=== PATIENT | female | born 1945 | race Caucasian/White ===

== ENCOUNTER 2016-12-22 17:36 | Inpatient (IN) | payer MEDICARE, OTHER ==
[2016-12-22] MEDS ORDERED: Albuterol/Ipratropium 3.0-0.5 MG/3 ML Neb Soln NEB ONE (19:54)
[2016-12-22] MEDS ORDERED: methylPREDNISolone Sodium Succinate 125 MG/2 ML SDV IVPUSH ONE (20:06)
[2016-12-22 20:31] LABS: CHLORIDE,CL 100 mmol/L (101-111); SODIUM,NA 132 mmol/L (135-145)
[2016-12-22] MEDS ORDERED: Codeine/guaiFENesin 100-10 MG/5 ML Syrup 5 ML Cup PO ONE (21:10)
[2016-12-22] MEDS ORDERED: Albuterol 0.083% 2.5 MG/3 ML Neb Soln NEB ONE (21:10)
[2016-12-22] MEDS ORDERED: Albuterol 0.083% 2.5 MG/3 ML Neb Soln ONE (21:11)
[2016-12-22] MEDS ORDERED: cefTRIAXone 1 GM in Sodium Chloride 0.9% 50 ML IV SCH (22:00)
[2016-12-22] MEDS ORDERED: Azithromycin 500 MG in Sodium Chloride 0.9% 250 ML IV SCH (22:00)
[2016-12-22] MEDS ORDERED: Budesonide 0.5 MG/2 ML Neb Susp NEB PRN (22:21)
[2016-12-22] MEDS ORDERED: Polyethylene Glycol 3350 Powder 17 GM Packet PO PRN (22:25)
[2016-12-22] MEDS ORDERED: Zolpidem 5 MG Tab PO PRN (22:25)
[2016-12-22] MEDS ORDERED: Ondansetron 4 MG/2 ML SDV IVPUSH PRN (22:25)
[2016-12-22] MEDS ORDERED: Morphine 2 MG/ML Syringe IVPUSH PRN (22:25)
[2016-12-22] MEDS ORDERED: Sodium Chloride 0.9% 1,000 ML IV SCH (22:30)
--- NOTE | 2016-12-22 22:38 | PCM.HP ---
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 Patient stated that she has chronic sinusitis which was acting up for the last one week was a green nasal drainage, postnasal drip, scratchy throat and yesterday her chronic cough got out of control and she starts having shortness of breath with exertion. She reported feeling warm and cold since yesterday and this morning her temperature was 100 Fahrenheit. She went to clinic and was prescribed antibiotic and steroid the patient was getting worse so she came to the emergency room. Abdomen resume her chest x-ray did not show consolidation or acute infiltrates. WBC, lactic acid, BNP are normal. On exam she was having persistent uncontrolled cough but did not seem to be in severe respiratory distress. in the emergency room she received Duoneb and albuterol nebulizers, Methylprednisone 125 mg IV and was admitted to the hospital. - Related Data Allergies/Adverse Reactions: Allergies Allergy/AdvReac Type Severity Reaction Status Date / Time levofloxacin [From Levaquin] Allergy Hypertensio Verified 12/22/16 19:13 n phenytoin sodium Allergy Rash Verified 12/22/16 19:13 [From Dilantin] phenytoin sodium extended Allergy Rash Verified 12/22/16 19:13 [From Dilantin] Home Medications: Home Meds Albuterol/Ipratropium [DuoNeb 3.0-0.5 MG/3 ML] 3 ml NEB Q6HRRT PRN 02/01/15 [ History] Alendronate [Fosamax] 70 mg PO Q7D@0600 02/01/15 [History] Esomeprazole [NexIUM] 40 mg PO DAILY 02/01/15 [History] amLODIPine [Norvasc] 10 mg PO BEDTIME 02/01/15 [History] Ascorbic Acid [Vitamin C] 500 mg PO DAILY 12/05/15 [History] Cholecalciferol (Vitamin D3) [Vitamin D3] 1,000 units PO DAILY 12/05/15 [History ] Cyanocobalamin (Vitamin B-12) [Vitamin B-12] 1,000 mcg PO DAILY 12/05/15 [ History] Tamoxifen [Nolvadex] 20 mg PO DAILY 12/05/15 [History] Albuterol [Proventil HFA] 2 puff INH Q4HR PRN 04/26/16 [History] Budesonide [Pulmicort] 2 ml NEB BID PRN 04/26/16 [History] guaiFENesin [Mucinex] 600 mg PO BID 04/26/16 [History] Amoxicillin/Potassium Clav [Augmentin 875-125 Tablet] 1 each PO BID 12/22/16 [ History] methylPREDNISolone [Methylprednisolone] 4 mg PO ASDIRECTED 12/22/16 [History] Past Medical History HEENT History: Reports: Cataract, Impaired vision, Sinusitis Cardiovascular History: Reports: Hypertension Respiratory History: Reports: Asthma Gastrointestinal History: Reports: Hiatal hernia Genitourinary History: Reports: Retention, urinary, Urinary incontinence, UTI, recurrent Other Genitourinary History: stress incontinence at times, urinaty retention, set up to see urologist HEALTH CARE ADMINISTRATOR History: Reports: None Musculoskeletal History: Reports: Neck pain, chronic, Osteoporosis, Other (see below) Other Musculoskeletal History: scoliosis Neurological History: Reports: MS, Neuropathy, peripheral Psychiatric History: Reports: None Endocrine/Metabolic History: Reports: None Hematologic History: Reports: None Immunologic History: Reports: None Oncologic (Cancer) History: Reports: Breast Dermatologic History: Reports: None - Infectious Disease History Infectious Disease History: Reports: Measles, Mumps - Past Surgical History Head Surgeries/Procedures: Reports: None HEENT Surgical History: Reports: Cataract surgery, Tonsillectomy Other HEENT Surgeries/Procedures: cleft palate at , sinus surgery, cyst removed from neck Cardiovascular Surgical History: Reports: None Respiratory Surgical History: Reports: None Other Respiratory Surgeries/Procedures: senstive to smoke and perfumes GI Surgical History: Reports: Appendectomy Female Surgical History: Reports: Breast biopsy, Cystectomy, Hysterectomy Other Musculoskeletal Surgeries/Procedures:: breast cyst removed Oncologic Surgical History: Reports: Biopsy of breast, Lumpectomy Social & Family History - Family History Family Medical History: Noncontributory Cardiac: Reports: [place] Other Cardiac Family History: mother father, and 2 sisters have pasted away from [employer] Respiratory: Reports: Asthma Psychiatric: Reports: Anxiety Other Psychiatric Family History: mother - Tobacco Use Smoking Status *Q: Never Smoker Second Hand Smoke Exposure: No - Caffeine Use Caffeine Use: Reports: Coffee - Recreational Drug Use Recreational Drug Use: No H&P Review of Systems - Review of Systems: Review Of Systems: See Below General: Denies: Night Sweats, Diaphoresis, Weight Loss HEENT: Reports: Rhinitis, Post Nasal Drip, Sinus Congestion, Sore Throat. Denies: Dysphasia, Ear Pain, Eye Pain, Headaches, Visual Changes Pulmonary: Reports: Shortness of Breath, Wheezing, Cough, Sputum (clear) Cardiovascular: Reports: No Symptoms Gastrointestinal: Reports: No Symptoms Genitourinary: Reports: No Symptoms Musculoskeletal: Reports: No Symptoms Skin: Reports: No Symptoms Psychiatric: Reports: No Symptoms Neurological: Reports: No Symptoms Hematologic/Lymphatic: Reports: No Symptoms Immunologic: Reports: No Symptoms Exam - Exam Exam: See Below - Vital Signs Vital Signs: Last Vital Signs Temp 36.8 C 12/22/16 19:08 Pulse 93 12/22/16 19:08 Resp 20 12/22/16 19:08 BP 137/81 12/22/16 19:08 Pulse Ox 100 12/22/16 19:08 Weight: 64.41 kg - Exam General: Alert, Oriented, Cooperative, Moderate Distress (from persistent coughing). No: Severe Distress, Sedated, Lethargic, Obtunded HEENT: Conjunctiva Clear, EACs Clear, EOMI, Hearing Intact, Mucosa Moist & [place] , Pupils Equal, Pupils Reactive, TMs Clear, Other (congested nasal mucosa and erythematous throat) Neck: Supple, Trachea Midline Lungs: Decreased Breath Sounds, Rhonchi, Wheezing. No: Crackles, Rales Cardiovascular: Regular Rate, Regular Rhythm Abdomen: Normal Bowel Sounds, Soft, Pelvis Stable (Female) Exam: Deferred Rectal (Female) Exam: Deferred Back Exam: Normal Inspection, Full Range of Motion Skin: Warm, Dry, Intact Neurological: Cranial Nerves Intact, Reflexes Equal Bilateral Neuro Extensive - Mental Status: Alert, Oriented x3, Normal Mood/Affect, Normal Cognition, Memory Intact Neuro Extensive - Motor, Sensory, Reflexes: CN II-XII Intact, Normal Reflexes. No: Abnormal Motor Psychiatric: Alert, Normal Affect, Normal Mood - Patient Data Result Diagrams: 12/22/16 20:05 12/22/16 20:05 *Q Meaningful Use (ADM) - VTE *Q VTE Criteria *Q: - Stroke *Q Stroke Criteria *Q: - AMI *Q AMI Criteria *Q: - Problem List (1) Persistent cough SNOMED Code(s): 887561433 ICD Code: R05 - COUGH Status: Acute Current Visit: Yes (2) Chronic sinusitis SNOMED Code(s): 04741517 ICD Code: J32.9 - CHRONIC SINUSITIS, UNSPECIFIED Status: Chronic Current Visit: Yes (3) Asthma exacerbation SNOMED Code(s): 762153737 ICD Code: J45.901 - UNSPECIFIED ASTHMA WITH (ACUTE) EXACERBATION Status: Acute Priority: High Current Visit: Yes (4) Bronchiectasis SNOMED Code(s): 54357032 ICD Code: J47.9 - BRONCHIECTASIS, UNCOMPLICATED Status: Chronic Current Visit: Yes (5) Essential hypertension SNOMED Code(s): 00938821 ICD Code: I10 - ESSENTIAL (PRIMARY) HYPERTENSION Status: Chronic Current Visit: Yes (6) Multiple sclerosis SNOMED Code(s): 72651183 ICD Code: G35 - MULTIPLE SCLEROSIS Status: Chronic Current Visit: Yes (7) GERD (gastroesophageal reflux disease) SNOMED Code(s): 040452266 ICD Code: K21.9 - GASTRO-ESOPHAGEAL REFLUX DISEASE WITHOUT ESOPHAGITIS Status: Chronic Current Visit: Yes (8) Gastroesophageal reflux disease SNOMED Code(s): 017345990 ICD Code: K21.9 - GASTRO-ESOPHAGEAL REFLUX DISEASE WITHOUT ESOPHAGITIS Status: Chronic Current Visit: No Problem List Initiated/Reviewed/Updated: Yes Orders Last 24hrs: Active Orders 24 hr Category Date Time Status Patient Status [ADT] Routine ADT 12/22/16 22:25 Ordered Flutter Valve Therapy [RT Chest Physiotherapy] [RC] Care 12/22/16 22:25 Ordered ASDIRECTED Height and Weight [RC] DAILY Care 12/22/16 22:25 Ordered Intake and Output [RC] QSHIFT Care 12/22/16 22:26 Ordered Oxygen Therapy [RC] PRN Care 12/22/16 22:25 Ordered Pulse Oximetry [RC] CONTINUOUS Care 12/22/16 22:26 Ordered RT Aerosol Therapy [RC] ASDIRECTED Care 12/22/16 22:28 Ordered RT Incentive Spirometry [RC] ASDIRECTED Care 12/22/16 22:25 Ordered Up ad Lina [RC] ASDIRECTED Care 12/22/16 22:25 Ordered VTE/DVT Education [RC] PER UNIT ROUTINE Care 12/22/16 22:25 Ordered Vital Signs [RC] Q4H Care 12/22/16 22:25 Ordered Regular Diet [DIET] Diet 12/22/16 Breakfast Ordered BASIC METABOLIC PANEL,BMP [CHEM] AM Lab 12/23/16 05:11 Ordered CBC WITH AUTO DIFF [HEME] AM Lab 12/23/16 05:11 Ordered CULTURE SPUTUM + SMEAR [RM] Stat Lab 12/22/16 22:25 Uncollected MAGNESIUM [CHEM] AM Lab 12/23/16 05:11 Ordered Acetaminophen [Tylenol] Med 12/22/16 22:25 Ordered 650 mg PO Q4H PRN Albuterol [Proventil Neb Soln] Med 12/22/16 22:25 Ordered 2.5 mg NEB Q2H PRN Albuterol/Ipratropium [DuoNeb 3.0-0.5 MG/3 ML] Med 12/22/16 23:00 Ordered 3 ml NEB Q4HRRT Alendronate [Fosamax] Med 12/29/16 06:00 Ordered 70 mg PO Q7D@0600 Ascorbic Acid [Vitamin C] Med 12/23/16 09:00 Ordered 500 mg PO DAILY Azithromycin [Zithromax] 500 mg Med 12/22/16 22:30 Ordered Sodium Chloride 0.9% [Normal Saline] 250 ml IV Q24H Budesonide [Pulmicort] Med 12/22/16 22:21 Ordered 2 ml NEB BID PRN Cholecalciferol (Vitamin D3) [Vitamin D3] Med 12/23/16 09:00 Ordered 1,000 units PO DAILY Codeine/guaiFENesin [Robitussin AC] Med 12/22/16 22:24 Ordered 10 ml PO Q4H PRN Cyanocobalamin (Vitamin B-12) [Vitamin B-12] Med 12/23/16 09:00 Ordered 1,000 mcg PO DAILY Enoxaparin [Lovenox] Med 12/23/16 09:00 Ordered 40 mg SUBCUT DAILY Esomeprazole [NexIUM] Med 12/23/16 09:00 Ordered 40 mg PO DAILY Morphine Med 12/22/16 22:25 Ordered 2 mg IVPUSH Q2H PRN Ondansetron [Zofran] Med 12/22/16 22:25 Ordered 4 mg IVPUSH Q6H PRN Polyethylene Glycol 3350 [MiraLAX] Med 12/22/16 22:25 Ordered 17 gm PO DAILY PRN Sodium Chloride 0.9% @ 125 MLS/HR (1000ml) Med 12/22/16 22:30 Ordered Sodium Chloride 0.9% [Normal Saline] 1,000 ml IV ASDIRECTED Tamoxifen [Nolvadex] Med 12/23/16 09:00 Ordered 20 mg PO DAILY Zolpidem [Ambien] Med 12/22/16 22:25 Ordered 5 mg PO BEDTIME PRN amLODIPine [Norvasc] Med 12/23/16 21:00 Ordered 10 mg PO BEDTIME cefTRIAXone [Rocephin] 1 gm Med 12/22/16 22:30 Ordered Sodium Chloride 0.9% [Normal Saline] 50 ml IV Q24H methylPREDNISolone Sod Succ [Solu-MEDROL] Med 12/22/16 22:30 Ordered 125 mg IVPUSH Q12H Resuscitation Status Routine Resus Stat 12/22/16 22:25 Ordered Assessment/Plan Comment:: asthma exacerbation with possible bronchitis, failed outpatient treatment Duoneb every 4 hours Budesonide b.i.d. Methylprednisone 125 mg b.i.d. Rocephin and azithromycin empirically Acute on chronic sinusitis Methylprednisone 125 mg b.i.d. Rocephin and azithromycin empirically Chronic Bronchiectasis Resume home medications in addition to the above treatment Incentives spirometer and flutter GERD Continue PPI Essential hypertension Continue amlodipine Multiple sclerosis Not active Hyperlipidemia, chronic Continue statin Lovenox for DVT prophylaxis Patient wants to be full code
[2016-12-22] MEDS ORDERED: Sodium Chloride 0.65% Nasal Spray 45 ML Bottle NAS PRN (22:48)
[2016-12-22] MEDS: Albuterol/Ipratropium 3.0-0.5 MG/3 ML Neb Soln NEB SCH (23:49)
[2016-12-22] MEDS: Azithromycin 500 MG in Sodium Chloride 0.9% 250 ML IV SCH (23:51)
[2016-12-23] MEDS: Albuterol/Ipratropium 3.0-0.5 MG/3 ML Neb Soln NEB SCH ×4 (03:13→20:07)
[2016-12-23] MEDS: Codeine/guaiFENesin 100-10 MG/5 ML Syrup 5 ML Cup PO PRN (03:20)
[2016-12-23] MEDS: Albuterol 0.083% 2.5 MG/3 ML Neb Soln NEB PRN (05:11)
[2016-12-23] MEDS ORDERED: Omeprazole 20 MG Cap.CR PO SCH (06:00)
[2016-12-23 06:55] LABS: CHLORIDE,CL 104 mmol/L (101-111); SODIUM,NA 135 mmol/L (135-145)
[2016-12-23] MEDS ORDERED: Potassium Chloride 10 MEQ Tab.ER PO ONE ×2 (08:04→11:59)
[2016-12-23] MEDS ORDERED: Magnesium Sulfate/Water 2 GM in Premix Bag 1 BAG IV ONE (08:04)
--- NOTE | 2016-12-23 09:43 | PCM.PN ---
- General Info Date of Service: 12/23/16 Admission Dx/Problem (Free Text): Admission Diagnosis/Problem Admission Diagnosis/Problem Asthmatic bronchitis Subjective Update: patient states that she is feeling better. Her cough and respiratory improved. However she is still having spells of cough. She denies fever, chills, nausea, vomiting, abdomen pain, headache, chest pain, or urinary symptoms, or any other symptoms. - Patient Data Vitals - most recent: Last Vital Signs Temp 37.2 C 12/23/16 07:00 Pulse 103 H 12/23/16 07:00 Resp 20 12/23/16 07:00 BP 109/54 L 12/23/16 07:00 Pulse Ox 95 12/23/16 07:00 Weight - most recent: 65.68 kg I&O - last 24 hours: Intake & Output 12/22/16 12/23/16 12/23/16 22:59 06:59 14:59 Intake Total 1315 Output Total 200 1200 Balance -200 115 Lab Results last 24 hrs: Laboratory Results - last 24 hr 12/23/16 12/23/16 Range/Units 06:02 06:02 WBC 7.9 (5.0-10.0) 10^3/uL RBC 4.13 L (4.2-5.4) 10^6/uL Hgb 12.0 (12.0-16.0) g/dL Hct 35.6 L (37.0-47.0) % MCV 86.2 (80-100) fL MCH 29.1 (27.0-34.0) pg MCHC 33.7 (33.0-35.0) g/dL Plt Count 174 (150-450) 10^3/uL Neut % (Auto) 95.8 H (42.2-75.2) % Lymph % (Auto) 3.2 L (20.5-50.1) % [place] % (Auto) 1.0 L (2-8) % Eos % (Auto) 0.0 L (1.0-3.0) % Baso % (Auto) 0.0 (0.0-1.0) % Sodium 135 (135-145) mmol/L Potassium 3.0 L (3.6-5.0) mmol/L Chloride 104 (101-111) mmol/L Carbon Dioxide 20.0 L (21.0-31.0) mmol/L Anion Gap 14.0 BUN 8 (7-18) mg/dL Creatinine 0.8 (0.6-1.3) mg/dL Est Cr Clr Drug Dosing 47.97 mL/min Estimated GFR (MDRD) > 60 Glucose 216 H (74-105) mg/dL Calcium 8.2 L (8.4-10.2) mg/dl Magnesium 1.6 L (1.8-2.5) mg/dL Med Orders - Current: Current Medications Acetaminophen (Tylenol) 650 mg PO Q4H PRN PRN Reason: Pain (Mild 1-3)/fever Albuterol (Proventil Neb Soln) 2.5 mg NEB Q2H PRN PRN Reason: shortness of breath/wheezing Last Admin: 12/23/16 05:11 Dose: 2.5 mg Albuterol/Ipratropium (Duoneb 3.0-0.5 Mg/3 Ml) 3 ml NEB Q6HRRT [facility] Amlodipine Besylate (Norvasc) 10 mg PO BEDTIME [facility] Ascorbic Acid (Vitamin C) 500 mg PO DAILY [facility] Budesonide (Pulmicort) 0.5 mg NEB BIDRT PRN PRN Reason: Shortness of Breath Cholecalciferol (Vitamin D3) 1,000 units PO DAILY [facility] Cyanocobalamin (Vitamin B12) 1,000 mcg PO DAILY [facility] Enoxaparin Sodium (Lovenox) 40 mg SUBCUT DAILY [facility] Guaifenesin/Codeine Phosphate (Robitussin Ac) 10 ml PO Q4H PRN PRN Reason: Cough Last Admin: 12/23/16 03:20 Dose: 10 ml Ceftriaxone Sodium 1 gm/ (Sodium Chloride) 50 mls @ 100 mls/hr IV Q24H [facility] Last Admin: 12/22/16 23:10 Dose: 100 mls/hr Azithromycin 500 mg/ Sodium (Chloride) 250 mls @ 250 mls/hr IV Q24H [facility] Last Admin: 12/22/16 23:51 Dose: 250 mls/hr Magnesium Sulfate 2 gm/ Premix 50 mls @ 25 mls/hr IV ONETIME ONE Stop: 12/23/16 10:03 Methylprednisolone Sodium Succinate (Solu-Medrol) 125 mg IVPUSH Q12H [facility] Morphine Sulfate (Morphine) 2 mg IVPUSH Q2H PRN PRN Reason: Pain (severe 7-10) Non-Formulary Medication (Alendronate [Fosamax]) 70 mg PO Q7D@0600 [facility] Omeprazole (Omeprazole) 40 mg PO ACBREAKFAST [facility] Last Admin: 12/23/16 06:29 Dose: 40 mg Ondansetron HCl (Zofran) 4 mg IVPUSH Q6H PRN PRN Reason: Nausea/Vomiting Polyethylene Glycol (Miralax) 17 gm PO DAILY PRN PRN Reason: Constipation Potassium Chloride (Klor-Con 10) 20 meq PO ONETIME ONE Stop: 12/23/16 12:00 Sodium Chloride ([place] Nasal Delaplane) 0 ml AMMY Q2H PRN PRN Reason: Congestion Tamoxifen Citrate (Nolvadex) 20 mg PO DAILY [facility] Zolpidem Tartrate (Ambien) 5 mg PO BEDTIME PRN PRN Reason: Sleep Discontinued Medications Albuterol (Proventil Neb Soln) 2.5 mg NEB ONETIME ONE Stop: 12/22/16 21:11 Last Admin: 12/22/16 21:12 Dose: 2.5 mg Albuterol (Proventil Neb Soln) Confirm Administered Dose 2.5 mg .ROUTE .STK-MED ONE Stop: 12/22/16 21:12 Last Admin: 12/22/16 22:13 Dose: Not Given Albuterol/Ipratropium (Duoneb 3.0-0.5 Mg/3 Ml) 3 ml NEB ONETIME ONE Stop: 12/22/16 19:55 Last Admin: 12/22/16 20:00 Dose: 3 ml Albuterol/Ipratropium (Duoneb 3.0-0.5 Mg/3 Ml) 3 ml NEB Q4HRRT [facility] Last Admin: 12/23/16 07:28 Dose: 3 ml Guaifenesin/Codeine Phosphate (Robitussin Ac) 5 ml PO ONETIME ONE Stop: 12/22/16 21:11 Last Admin: 12/22/16 21:13 Dose: 5 ml Azithromycin 500 mg/ Sodium (Chloride) 250 mls @ 250 mls/hr IV Q24H [facility] Last Admin: 12/23/16 00:38 Dose: Not Given Sodium Chloride (Normal Saline) 1,000 mls @ 125 mls/hr IV ASDIRECTED [facility] Last Admin: 12/22/16 23:10 Dose: 125 mls/hr Methylprednisolone Sodium Succinate (Solu-Medrol) 125 mg IVPUSH ONETIME ONE Stop: 12/22/16 20:07 Last Admin: 12/22/16 20:44 Dose: 125 mg Potassium Chloride (Klor-Con 10) 40 meq PO ONETIME ONE Stop: 12/23/16 08:05 - Exam General: alert, oriented, cooperative, no acute distress, other (she still having the cough). No: moderate distress, severe distress, sedated, lethargic, obtunded HEENT: Pupils equal, Pupils reactive, EOMI, Mucous membr. moist/pink Neck: supple, trachea midline, no JVD Lungs: Decreased breath sounds, Rhonchi, Wheezing. No: Crackles, Rales, Rub, Stridor Cardiovascular: Regular Rate, Regular Rhythm Abdomen: bowel sounds present, soft, no tenderness, no distension (Female) Exam: Deferred Back Exam: Normal Inspection, Full Range of Motion Extremities: no edema, normal pulses, no tenderness/swelling, no cyanosis Skin: warm, dry, intact Neurological: no new focal deficit Psy/Mental Status: alert, normal affect, normal mood - Problem List & Annotations (1) Persistent cough SNOMED Code(s): 875799383 Code(s): R05 - COUGH Status: Acute Current Visit: Yes (2) Chronic sinusitis SNOMED Code(s): 33638209 Code(s): J32.9 - CHRONIC SINUSITIS, UNSPECIFIED Status: Chronic Current Visit: Yes (3) Asthma exacerbation SNOMED Code(s): 403565484 Code(s): J45.901 - UNSPECIFIED ASTHMA WITH (ACUTE) EXACERBATION Status: Acute Priority: High Current Visit: Yes (4) Bronchiectasis SNOMED Code(s): 05967288 Code(s): J47.9 - BRONCHIECTASIS, UNCOMPLICATED Status: Chronic Current Visit: Yes (5) Essential hypertension SNOMED Code(s): 94490483 Code(s): I10 - ESSENTIAL (PRIMARY) HYPERTENSION Status: Chronic Current Visit: Yes (6) Multiple sclerosis SNOMED Code(s): 95401407 Code(s): G35 - MULTIPLE SCLEROSIS Status: Chronic Current Visit: Yes (7) GERD (gastroesophageal reflux disease) SNOMED Code(s): 947745421 Code(s): K21.9 - GASTRO-ESOPHAGEAL REFLUX DISEASE WITHOUT ESOPHAGITIS Status: Chronic Current Visit: Yes (8) Gastroesophageal reflux disease SNOMED Code(s): 563658651 Code(s): K21.9 - GASTRO-ESOPHAGEAL REFLUX DISEASE WITHOUT ESOPHAGITIS Status: Chronic Current Visit: No - Problem List Review Problem List Initiated/Reviewed/Updated: Yes - My Orders Last 24 Hours: My Active Orders 12/22/16 22:48 Sodium Chloride 0.65% [[place] Nasal Delaplane] See Dose Instructions AMMY Q2H PRN 12/22/16 23:00 Azithromycin [Zithromax] 500 mg Sodium Chloride 0.9% [Normal Saline] 250 ml IV Q24H 12/23/16 08:04 Magnesium Sulfate/Water [Magnesium Sulfate 2 GM in Water 50 ML] 2 gm Premix Bag 1 bag IV ONETIME 12/23/16 11:59 Potassium Chloride [Klor-Con 10] 20 meq PO ONETIME ONE 12/23/16 13:00 Albuterol/Ipratropium [DuoNeb 3.0-0.5 MG/3 ML] 3 ml NEB Q6HRRT 12/24/16 05:11 BASIC METABOLIC PANEL,BMP [CHEM] AM CBC WITH AUTO DIFF [HEME] AM - Plan Plan:: asthma exacerbation with possible bronchitis, failed outpatient treatment Duoneb every 6 hours Budesonide b.i.d. Methylprednisone 125 mg b.i.d. Rocephin and azithromycin empirically Persistent cough Robitussin/codeine, Tessalon, Cepacol p.r.n. Acute on chronic sinusitis Methylprednisone 125 mg b.i.d. Rocephin and azithromycin empirically Chronic Bronchiectasis Resume home medications in addition to the above treatment Incentives spirometer and flutter GERD Continue PPI Essential hypertension Continue amlodipine Multiple sclerosis Not active Hyperlipidemia, chronic Continue statin Lovenox for DVT prophylaxis Patient wants to be full code
[2016-12-23] MEDS: Tamoxifen 10 MG Tab PO SCH (10:05)
[2016-12-23] MEDS: Cholecalciferol (Vitamin D3) 400 Unit Tab PO SCH (10:06)
[2016-12-23] MEDS: Ascorbic Acid 500 MG Tab PO SCH (10:06)
[2016-12-23] MEDS: Enoxaparin 40 MG/0.4 ML Syringe SUBCUT SCH (10:10)
[2016-12-23] MEDS: methylPREDNISolone Sodium Succinate 125 MG/2 ML SDV IVPUSH SCH ×4 (10:13→23:08)
[2016-12-23] MEDS: Cyanocobalamin (Vitamin B12) 100 MCG Tab PO SCH (10:13)
[2016-12-23] MEDS: Benzonatate 100 MG Cap PO PRN ×2 (13:06→20:05)
[2016-12-23] MEDS: Acetaminophen 325 MG Tab PO PRN (14:43)
[2016-12-23] MEDS: Benzocaine/Cetylpyridinium/Menthol Lozenge MUCMEM PRN (20:05)
[2016-12-23] MEDS: amLODIPine 5 MG Tab PO SCH (21:40)
[2016-12-23] MEDS ORDERED: cefTRIAXone 1 GM in Sodium Chloride 0.9% 50 ML IV SCH (22:00)
[2016-12-23] MEDS: Azithromycin 500 MG in Sodium Chloride 0.9% 250 ML IV SCH (22:55)
[2016-12-24] MEDS: Acetaminophen 325 MG Tab PO PRN ×2 (01:08→08:50)
[2016-12-24] MEDS: Benzocaine/Cetylpyridinium/Menthol Lozenge MUCMEM PRN (01:10)
[2016-12-24] MEDS: Albuterol/Ipratropium 3.0-0.5 MG/3 ML Neb Soln NEB SCH ×4 (01:11→17:04)
[2016-12-24] MEDS: ALENDRONATE 70 MG PO SCH (06:12)
[2016-12-24] MEDS: methylPREDNISolone Sodium Succinate 125 MG/2 ML SDV IVPUSH SCH (06:51)
[2016-12-24 07:15] LABS: CHLORIDE,CL 104 mmol/L (101-111); SODIUM,NA 134 mmol/L (135-145)
[2016-12-24] MEDS: NEXIUM 40 MG PO SCH (09:50)
[2016-12-24] MEDS: Enoxaparin 40 MG/0.4 ML Syringe SUBCUT SCH (09:51)
[2016-12-24] MEDS: Tamoxifen 10 MG Tab PO SCH (09:52)
[2016-12-24] MEDS: Cyanocobalamin (Vitamin B12) 100 MCG Tab PO SCH (09:52)
[2016-12-24] MEDS: Ascorbic Acid 500 MG Tab PO SCH (09:52)
[2016-12-24] MEDS: Cholecalciferol (Vitamin D3) 400 Unit Tab PO SCH (09:53)
[2016-12-24] MEDS ORDERED: Piperacillin/Tazobactam 3.375 GM in Sodium Chloride 0.9% 100 ML IV SCH ×2 (11:00→20:00)
[2016-12-24] MEDS ORDERED: Furosemide 40 MG Tab PO ONE (11:01)
--- NOTE | 2016-12-24 11:37 | PCM.PN ---
- General Info Date of Service: 12/24/16 Admission Dx/Problem (Free Text): Admission Diagnosis/Problem Admission Diagnosis/Problem Asthmatic bronchitis Subjective Update: patient states that she is not feeling good today. She feels ill. Her main complaint is sinus pressure and pain with thick green nasal drainage. also she is complaining of feeling hot. Her temperature was mildly elevated yesterday and this morning. however her cough and shortness of breath continued to improve. However she is still having spells of cough. She denies nausea, vomiting, abdomen pain, headache, chest pain, or urinary symptoms, or any other symptoms. - Patient Data Vitals - most recent: Last Vital Signs Temp 37.6 C 12/24/16 07:43 Pulse 94 12/24/16 07:43 Resp 20 12/24/16 07:43 BP 127/58 L 12/24/16 07:43 Pulse Ox 99 12/24/16 07:43 Weight - most recent: 66.315 kg I&O - last 24 hours: Intake & Output 12/23/16 12/24/16 12/24/16 22:59 06:59 14:59 Intake Total 46 800 Output Total 3800 1000 Balance -3754 -200 Lab Results last 24 hrs: Laboratory Results - last 24 hr 12/24/16 12/24/16 Range/Units 06:40 06:40 WBC 20.5 H (5.0-10.0) 10^3/uL RBC 3.98 L (4.2-5.4) 10^6/uL Hgb 11.9 L (12.0-16.0) g/dL Hct 34.9 L (37.0-47.0) % MCV 87.7 (80-100) fL MCH 29.9 (27.0-34.0) pg MCHC 34.1 (33.0-35.0) g/dL Plt Count 211 (150-450) 10^3/uL Neut % (Auto) 95.6 H (42.2-75.2) % Lymph % (Auto) 2.1 L (20.5-50.1) % [place] % (Auto) 2.3 (2-8) % Eos % (Auto) 0.0 L (1.0-3.0) % Baso % (Auto) 0.0 (0.0-1.0) % Sodium 134 L (135-145) mmol/L Potassium 4.4 (3.6-5.0) mmol/L Chloride 104 (101-111) mmol/L Carbon Dioxide 23.0 (21.0-31.0) mmol/L Anion Gap 11.4 BUN 10 (7-18) mg/dL Creatinine 0.7 (0.6-1.3) mg/dL Est Cr Clr Drug Dosing 54.82 mL/min Estimated GFR (MDRD) > 60 Glucose 145 H (74-105) mg/dL Calcium 8.3 L (8.4-10.2) mg/dl Med Orders - Current: Current Medications Acetaminophen (Tylenol) 650 mg PO Q4H PRN PRN Reason: Pain (Mild 1-3)/fever Last Admin: 12/24/16 08:50 Dose: 650 mg Albuterol (Proventil Neb Soln) 2.5 mg NEB Q2H PRN PRN Reason: shortness of breath/wheezing Last Admin: 12/23/16 05:11 Dose: 2.5 mg Albuterol/Ipratropium (Duoneb 3.0-0.5 Mg/3 Ml) 3 ml NEB Q6HRRT [facility] Last Admin: 12/24/16 07:11 Dose: 3 ml Amlodipine Besylate (Norvasc) 10 mg PO BEDTIME [facility] Last Admin: 12/23/16 21:40 Dose: 10 mg Ascorbic Acid (Vitamin C) 500 mg PO DAILY [facility] Last Admin: 12/24/16 09:52 Dose: 500 mg Benzocaine/Menthol (Cepacol Sore Throat) 1 lozenge MUCMEM Q4H PRN PRN Reason: cough, dry throat Last Admin: 12/24/16 01:10 Dose: 1 lozenge Benzonatate (Tessalon Perles) 100 mg PO QID PRN PRN Reason: cough, dry throat Last Admin: 12/23/16 20:05 Dose: 100 mg Budesonide (Pulmicort) 0.5 mg NEB BIDRT PRN PRN Reason: Shortness of Breath Cholecalciferol (Vitamin D3) 1,000 units PO DAILY [facility] Last Admin: 12/24/16 09:53 Dose: 1,000 units Cyanocobalamin (Vitamin B12) 1,000 mcg PO DAILY [facility] Last Admin: 12/24/16 09:52 Dose: 1,000 mcg Enoxaparin Sodium (Lovenox) 40 mg SUBCUT DAILY [facility] Last Admin: 12/24/16 09:51 Dose: 40 mg Guaifenesin/Codeine Phosphate (Robitussin Ac) 10 ml PO Q4H PRN PRN Reason: Cough Last Admin: 12/23/16 03:20 Dose: 10 ml Azithromycin 500 mg/ Sodium (Chloride) 250 mls @ 250 mls/hr IV Q24H [facility] Last Admin: 12/23/16 22:55 Dose: 250 mls/hr Piperacillin Sod/Tazobactam (Sod 3.375 gm/ Sodium Chloride) 100 mls @ 200 mls/ hr IV Q8H [facility] Vancomycin HCl 1.25 gm/ Sodium (Chloride) 250 mls @ 167 mls/hr IV ONETIME ONE Stop: 12/24/16 12:28 Morphine Sulfate (Morphine) 2 mg IVPUSH Q2H PRN PRN Reason: Pain (severe 7-10) Ondansetron HCl (Zofran) 4 mg IVPUSH Q6H PRN PRN Reason: Nausea/Vomiting Alendronate [Fosamax ] 70 MgPt's Own Med 0 each PO Q7D@0600 [facility] Last Admin: 12/24/16 06:12 Dose: 1 each Patient's Own Medication 1 Each Nexium 40 Mg 1 each PO ACBREAKFAST [facility] Last Admin: 12/24/16 09:50 Dose: 1 each Polyethylene Glycol (Miralax) 17 gm PO DAILY PRN PRN Reason: Constipation Prednisone (Prednisone) 40 mg PO WITHBREAKFAST [facility] Sodium Chloride ([place] Nasal [place]) 0 ml AMMY Q2H PRN PRN Reason: Congestion Tamoxifen Citrate (Nolvadex) 20 mg PO DAILY [facility] Last Admin: 12/24/16 09:52 Dose: 20 mg Vancomycin HCl (Pharmacy To Dose - Vancomycin) 1 dose .XX ASDIRECTED [facility] Zolpidem Tartrate (Ambien) 5 mg PO BEDTIME PRN PRN Reason: Sleep Discontinued Medications Albuterol (Proventil Neb Soln) 2.5 mg NEB ONETIME ONE Stop: 12/22/16 21:11 Last Admin: 12/22/16 21:12 Dose: 2.5 mg Albuterol (Proventil Neb Soln) Confirm Administered Dose 2.5 mg .ROUTE .STK-MED ONE Stop: 12/22/16 21:12 Last Admin: 12/22/16 22:13 Dose: Not Given Albuterol/Ipratropium (Duoneb 3.0-0.5 Mg/3 Ml) 3 ml NEB ONETIME ONE Stop: 12/22/16 19:55 Last Admin: 12/22/16 20:00 Dose: 3 ml Albuterol/Ipratropium (Duoneb 3.0-0.5 Mg/3 Ml) 3 ml NEB Q4HRRT [facility] Last Admin: 12/23/16 07:28 Dose: 3 ml Furosemide (Lasix) 40 mg PO ONETIME ONE Stop: 12/24/16 11:02 Guaifenesin/Codeine Phosphate (Robitussin Ac) 5 ml PO ONETIME ONE Stop: 12/22/16 21:11 Last Admin: 12/22/16 21:13 Dose: 5 ml Azithromycin 500 mg/ Sodium (Chloride) 250 mls @ 250 mls/hr IV Q24H [facility] Last Admin: 12/23/16 00:38 Dose: Not Given Sodium Chloride (Normal Saline) 1,000 mls @ 125 mls/hr IV ASDIRECTED [facility] Last Admin: 12/22/16 23:10 Dose: 125 mls/hr Ceftriaxone Sodium 1 gm/ (Sodium Chloride) 50 mls @ 100 mls/hr IV Q24H [facility] Last Admin: 12/22/16 23:10 Dose: 100 mls/hr Magnesium Sulfate 2 gm/ Premix 50 mls @ 25 mls/hr IV ONETIME ONE Stop: 12/23/16 10:03 Last Infusion: 12/23/16 12:50 Dose: Infused Ceftriaxone Sodium 1 gm/ (Sodium Chloride) 50 mls @ 100 mls/hr IV Q24H [facility] Last Admin: 12/23/16 21:43 Dose: 100 mls/hr Methylprednisolone Sodium Succinate (Solu-Medrol) 125 mg IVPUSH ONETIME ONE Stop: 12/22/16 20:07 Last Admin: 12/22/16 20:44 Dose: 125 mg Methylprednisolone Sodium Succinate (Solu-Medrol) 125 mg IVPUSH Q12H [facility] Last Admin: 12/23/16 21:41 Dose: 125 mg Methylprednisolone Sodium Succinate (Solu-Medrol) 125 mg IVPUSH Q12H [facility] Last Admin: 12/24/16 06:51 Dose: 125 mg Omeprazole (Omeprazole) 40 mg PO ACBREAKFAST [facility] Last Admin: 12/23/16 06:29 Dose: 40 mg Potassium Chloride (Klor-Con 10) 40 meq PO ONETIME ONE Stop: 12/23/16 08:05 Last Admin: 12/23/16 10:04 Dose: 40 meq Potassium Chloride (Klor-Con 10) 20 meq PO ONETIME ONE Stop: 12/23/16 12:00 Last Admin: 12/23/16 13:06 Dose: 20 meq - Exam General: alert, oriented, cooperative, no acute distress, other (she looks ill with flushed face) HEENT: Pupils equal, Pupils reactive, EOMI, Mucous membr. moist/pink, Other ( sinus tenderness) Lungs: Decreased breath sounds (but fair air exchange), Rhonchi, Wheezing. No: Rub, Stridor Cardiovascular: Regular Rate, Regular Rhythm Abdomen: bowel sounds present, soft, no tenderness, no distension (Female) Exam: Deferred Back Exam: Normal Inspection, Full Range of Motion Extremities: normal pulses, no tenderness/swelling, no clubbing, no cyanosis, no calf tenderness, edema (trace bilateral lower extremities edema) Skin: warm, dry, intact Neurological: no new focal deficit Psy/Mental Status: alert, normal affect, normal mood - Problem List & Annotations (1) Persistent cough SNOMED Code(s): 314026482 Code(s): R05 - COUGH Status: Acute Current Visit: Yes (2) Chronic sinusitis SNOMED Code(s): 00995599 Code(s): J32.9 - CHRONIC SINUSITIS, UNSPECIFIED Status: Chronic Current Visit: Yes (3) Asthma exacerbation SNOMED Code(s): 256844095 Code(s): J45.901 - UNSPECIFIED ASTHMA WITH (ACUTE) EXACERBATION Status: Acute Priority: High Current Visit: Yes (4) Bronchiectasis SNOMED Code(s): 84121226 Code(s): J47.9 - BRONCHIECTASIS, UNCOMPLICATED Status: Chronic Current Visit: Yes (5) Essential hypertension SNOMED Code(s): 46158980 Code(s): I10 - ESSENTIAL (PRIMARY) HYPERTENSION Status: Chronic Current Visit: Yes (6) Multiple sclerosis SNOMED Code(s): 78468240 Code(s): G35 - MULTIPLE SCLEROSIS Status: Chronic Current Visit: Yes (7) GERD (gastroesophageal reflux disease) SNOMED Code(s): 960894171 Code(s): K21.9 - GASTRO-ESOPHAGEAL REFLUX DISEASE WITHOUT ESOPHAGITIS Status: Chronic Current Visit: Yes (8) Gastroesophageal reflux disease SNOMED Code(s): 760882640 Code(s): K21.9 - GASTRO-ESOPHAGEAL REFLUX DISEASE WITHOUT ESOPHAGITIS Status: Chronic Current Visit: No (9) Acute sinusitis SNOMED Code(s): 34174676 Code(s): J01.90 - ACUTE SINUSITIS, UNSPECIFIED Status: Acute Current Visit: Yes - Problem List Review Problem List Initiated/Reviewed/Updated: Yes - My Orders Last 24 Hours: My Active Orders 12/23/16 13:00 Albuterol/Ipratropium [DuoNeb 3.0-0.5 MG/3 ML] 3 ml NEB Q6HRRT 12/23/16 19:28 Communication Order [RC] 12/24/16 06:00 Patient's Own Medication [Ptom] 1 each PO ACBREAKFAST 12/24/16 10:59 CULTURE BLOOD [BC] Stat CULTURE BLOOD [BC] Stat Vancomycin 1.25 gm Sodium Chloride 0.9% [Normal Saline] 250 ml IV ONETIME Blood Culture x2 Reflex Set [OM.PC] Stat 12/24/16 11:00 Piperacillin/Tazobactam [Zosyn] 3.375 gm Sodium Chloride 0.9% [Normal Saline] 100 ml IV Q8H Vancomycin Pharmacy to Dose [Pharmacy to Dose - Vancomycin] 1 dose .XX ASDIRECTED 12/24/16 21:00 predniSONE 40 mg PO WITHBREAKFAST - Plan Plan:: possible sepsis WBC increased From 7.7 to 20,000 despite being on IV antibiotic. Part of it could be related to IV steroids -lactic acid and sputum/blood cultures ordered -Change Rocephin to Zosyn and add Karen mycin -She gained 2 kg since admission so we'll avoid giving IV fluid bolus. She has good oral intake Acute on chronic sinusitis Despite being on IV antibiotic with Rocephin and azithromycin patient developed fever In addition to increasing in her sinus symptoms -Change Rocephin to Zosyn. Patient denies penicillin allergy and she had taken place an IV penicillin in the past without problem -add vancomycin -She was advised to give sputum culture -new 2 sets of blood culture -blood cultures from admission has not grown any bacteria asthma exacerbation with possible bronchitis, failed outpatient treatment Duoneb every 6 hours Budesonide b.i.d. -change Methylprednisone 125 mg b.i.d. to oral prednisone 40 mg daily Rocephin and azithromycin empirically -repeat chest x-ray Persistent cough Robitussin/codeine, Tessalon, Cepacol p.r.n. Chronic Bronchiectasis Resume home medications in addition to the above treatment Incentives spirometer and flutter GERD Continue PPI Essential hypertension Continue amlodipine Multiple sclerosis Not active Hyperlipidemia, chronic Continue statin Lovenox for DVT prophylaxis Patient wants to be full code
[2016-12-24] MEDS ORDERED: Sodium Chloride 0.9% 500 ML IV SCH (13:15)
[2016-12-24] MEDS ORDERED: TOBRAMYCIN IV SCH (15:00)
[2016-12-24] MEDS: Sodium Chloride 0.9% 1,000 ML IV SCH (15:00)
[2016-12-24] MEDS ORDERED: SODIUM CHLORIDE 0.9% IV SCH (15:00)
[2016-12-24] MEDS ORDERED: Meropenem 1 GM in Sodium Chloride 0.9% 100 ML IV SCH (18:00)
[2016-12-24] MEDS: Benzonatate 100 MG Cap PO PRN (18:49)
[2016-12-24] MEDS: amLODIPine 5 MG Tab PO SCH (20:50)
[2016-12-24] MEDS: predniSONE 20 MG Tab PO SCH (20:51)
[2016-12-24] MEDS: Azithromycin 500 MG in Sodium Chloride 0.9% 250 ML IV SCH (22:55)
[2016-12-25] MEDS: Albuterol/Ipratropium 3.0-0.5 MG/3 ML Neb Soln NEB SCH ×5 (01:35→23:23)
[2016-12-25] MEDS: Sodium Chloride 0.9% 1,000 ML IV SCH ×2 (04:32→17:44)
[2016-12-25] MEDS: Meropenem 1 GM in Sodium Chloride 0.9% 100 ML IV SCH ×2 (05:49→17:58)
[2016-12-25] MEDS: NEXIUM 40 MG PO SCH (05:50)
--- NOTE | 2016-12-25 06:46 | EDM.PDOC ---
ED HPI GENERAL MEDICAL PROBLEM - General Chief Complaint: Respiratory Problem Stated Complaint: RESPIRATORY Time Seen by Provider: 12/22/16 19:10 Source of Information: Reports: Patient History Limitations: Reports: No Limitations - History of Present Illness INITIAL COMMENTS - FREE TEXT/NARRATIVE: ED with c/ difficulty breathing and cough, worsening past 2 days. no fevers. Hx asthma. Was seen in clinic earlier today and reports given abx and steroids. Follow up call by clinic this afternoon and she reported not doing any better and was told to come to ED. Onset: Gradual Duration: Day(s): Worsens with: Reports: Breathing - Related Data Allergies Allergy/AdvReac Type Severity Reaction Status Date / Time levofloxacin [From Levaquin] Allergy Hypertensio Verified 12/22/16 19:13 n phenytoin sodium Allergy Rash Verified 12/22/16 19:13 [From Dilantin] phenytoin sodium extended Allergy Rash Verified 12/22/16 19:13 [From Dilantin] Home Meds: Home Meds Albuterol/Ipratropium [DuoNeb 3.0-0.5 MG/3 ML] 3 ml NEB Q6HRRT PRN 02/01/15 [ History] Alendronate [Fosamax] 70 mg PO Q7D@0600 02/01/15 [History] Esomeprazole [NexIUM] 40 mg PO DAILY 02/01/15 [History] amLODIPine [Norvasc] 10 mg PO BEDTIME 02/01/15 [History] Ascorbic Acid [Vitamin C] 500 mg PO DAILY 12/05/15 [History] Cholecalciferol (Vitamin D3) [Vitamin D3] 1,000 units PO DAILY 12/05/15 [History ] Cyanocobalamin (Vitamin B-12) [Vitamin B-12] 1,000 mcg PO DAILY 12/05/15 [ History] Tamoxifen [Nolvadex] 20 mg PO DAILY 12/05/15 [History] Albuterol [Proventil HFA] 2 puff INH Q4HR PRN 04/26/16 [History] Budesonide [Pulmicort] 2 ml NEB BID PRN 04/26/16 [History] guaiFENesin [Mucinex] 600 mg PO BID 04/26/16 [History] Amoxicillin/Potassium Clav [Augmentin 875-125 Tablet] 1 each PO BID 12/22/16 [ History] methylPREDNISolone [Methylprednisolone] 4 mg PO ASDIRECTED 12/22/16 [History] Past Medical History HEENT History: Reports: Cataract, Impaired Vision, Sinusitis Cardiovascular History: Reports: Hypertension Respiratory History: Reports: Asthma Gastrointestinal History: Reports: Hiatal Hernia Genitourinary History: Reports: Retention, Urinary, Urinary Incontinence, UTI, Recurrent Other Genitourinary History: stress incontinence at times, urinaty retention, set up to see urologist P[employer]WORKER History: Reports: None Musculoskeletal History: Reports: Neck Pain, Chronic, Osteoporosis, Other (See Below) Other Musculoskeletal History: scoliosis Neurological History: Reports: MS, Neuropathy, Peripheral Psychiatric History: Reports: None Endocrine/Metabolic History: Reports: None Hematologic History: Reports: None Immunologic History: Reports: None Oncologic (Cancer) History: Reports: Breast Dermatologic History: Reports: None - Infectious Disease History Infectious Disease History: Reports: Measles, Mumps - Past Surgical History Head Surgeries/Procedures: Reports: None HEENT Surgical History: Reports: Cataract Surgery, Tonsillectomy Other HEENT Surgeries/Procedures: cleft palate at , sinus surgery, cyst removed from neck Cardiovascular Surgical History: Reports: None Respiratory Surgical History: Reports: None Other Respiratory Surgeries/Procedures: senstive to smoke and perfumes GI Surgical History: Reports: Appendectomy Female Surgical History: Reports: Breast Biopsy, Cystectomy, Hysterectomy Other Musculoskeletal Surgeries/Procedures:: breast cyst removed Oncologic Surgical History: Reports: Biopsy of Breast, Lumpectomy Social & Family History - Family History Family Medical History: Noncontributory Cardiac: Reports: IA Other Cardiac Family History: mother father, and 2 sisters have pasted away from [employer] Respiratory: Reports: Asthma Psychiatric: Reports: Anxiety Other Psychiatric Family History: mother - Tobacco Use Smoking Status *Q: Never Smoker Second Hand Smoke Exposure: No - Caffeine Use Caffeine Use: Reports: Coffee - Recreational Drug Use Recreational Drug Use: No ED ROS GENERAL - Review of Systems Review Of Systems: See Below Constitutional: Reports: Malaise, Decreased Appetite HEENT: Reports: Throat Pain (from coughing) Respiratory: Reports: Shortness of Breath, Wheezing, Cough Cardiovascular: Reports: No Symptoms GI/Abdominal: Reports: No Symptoms : Reports: Incontinence (with cough) Musculoskeletal: Reports: No Symptoms Skin: Reports: No Symptoms Neurological: Reports: No Symptoms Psychiatric: Reports: Anxiety ED EXAM, GENERAL - Physical Exam Exam: See Below Exam Limited By: No Limitations General Appearance: Alert, Moderate Distress Eye Exam: Bilateral Eye: EOMI Ears: Normal External Exam, Normal TMs Nose: Nasal Drainage (clear) Throat/Mouth: Normal Inspection Head: Atraumatic, Normocephalic Respiratory/Chest: Decreased Breath Sounds, Crackles, Wheezing, Other ( bronchspasm, frequent gagging cough) Cardiovascular: Normal Peripheral Pulses, Regular Rate, Rhythm GI/Abdominal: Normal Bowel Sounds, Soft Back Exam: Normal Inspection, Full Range of Motion Extremities: Normal Inspection, Normal Range of Motion, No Pedal Edema Neurological: Alert, Oriented, Normal Cognition Psychiatric: Anxious Skin Exam: Warm, Dry, Intact, Normal Color Course - Vital Signs Last Recorded V/S: Last Vital Signs Temp 99 F 12/24/16 23:00 Pulse 94 12/24/16 19:00 Resp 20 12/24/16 23:00 BP 128/73 12/24/16 23:00 Pulse Ox 97 12/25/16 06:04 - Orders/Labs/Meds Orders: Active Orders 24 hr Category Date Time Status Patient's Own Medication [Ptom] Med 12/24/16 06:00 Active 0 each PO Q7D@0600 Medication Orders Acetaminophen (Tylenol) 650 mg PO Q4H PRN PRN Reason: Pain (Mild 1-3)/fever Last Admin: 12/24/16 08:50 Dose: 650 mg Admin: 12/24/16 01:08 Dose: 650 mg Admin: 12/23/16 14:43 Dose: 650 mg Albuterol (Proventil Neb Soln) 2.5 mg NEB Q2H PRN PRN Reason: shortness of breath/wheezing Last Admin: 12/23/16 05:11 Dose: 2.5 mg Albuterol/Ipratropium (Duoneb 3.0-0.5 Mg/3 Ml) 3 ml NEB Q6HRRT [facility] Last Admin: 12/25/16 06:03 Dose: 3 ml Admin: 12/25/16 01:35 Dose: Not Given Admin: 12/24/16 17:04 Dose: 3 ml Admin: 12/24/16 13:38 Dose: 3 ml Admin: 12/24/16 07:11 Dose: 3 ml Admin: 12/24/16 01:11 Dose: 3 ml Admin: 12/23/16 20:07 Dose: 3 ml Admin: 12/23/16 13:43 Dose: 3 ml Amlodipine Besylate (Norvasc) 10 mg PO BEDTIME [facility] Last Admin: 12/24/16 20:50 Dose: 10 mg Admin: 12/23/16 21:40 Dose: 10 mg Ascorbic Acid (Vitamin C) 500 mg PO DAILY [facility] Last Admin: 12/24/16 09:52 Dose: 500 mg Admin: 12/23/16 10:06 Dose: 500 mg Benzocaine/Menthol (Cepacol Sore Throat) 1 lozenge MUCMEM Q4H PRN PRN Reason: cough, dry throat Last Admin: 12/24/16 01:10 Dose: 1 lozenge Admin: 12/23/16 20:05 Dose: 1 lozenge Benzonatate (Tessalon Perles) 100 mg PO QID PRN PRN Reason: cough, dry throat Last Admin: 12/24/16 18:49 Dose: 100 mg Admin: 12/23/16 20:05 Dose: 100 mg Admin: 12/23/16 13:06 Dose: 100 mg Budesonide (Pulmicort) 0.5 mg NEB BIDRT PRN PRN Reason: Shortness of Breath Cholecalciferol (Vitamin D3) 1,000 units PO DAILY [facility] Last Admin: 12/24/16 09:53 Dose: 1,000 units Admin: 12/23/16 10:06 Dose: 1,000 units Cyanocobalamin (Vitamin B12) 1,000 mcg PO DAILY [facility] Last Admin: 12/24/16 09:52 Dose: 1,000 mcg Admin: 12/23/16 10:13 Dose: 1,000 mcg Enoxaparin Sodium (Lovenox) 40 mg SUBCUT DAILY [facility] Last Admin: 12/24/16 09:51 Dose: 40 mg Admin: 12/23/16 10:10 Dose: 40 mg Guaifenesin/Codeine Phosphate (Robitussin Ac) 10 ml PO Q4H PRN PRN Reason: Cough Last Admin: 12/23/16 03:20 Dose: 10 ml Sodium Chloride (Normal Saline) 1,000 mls @ 100 mls/hr IV ASDIRECTED [facility] Last Admin: 12/25/16 04:32 Dose: 100 mls/hr Infusion: 12/25/16 04:31 Dose: 100 mls/hr Admin: 12/24/16 15:00 Dose: 100 mls/hr Vancomycin HCl 1 gm/ Sodium (Chloride) 250 mls @ 166.667 mls/hr IV Q24H [facility] Azithromycin 500 mg/ Sodium (Chloride) 250 mls @ 250 mls/hr IV Q24H [facility] Last Admin: 12/24/16 22:55 Dose: 250 mls/hr Meropenem 1 gm/ Sodium (Chloride) 100 mls @ 200 mls/hr IV Q12H [facility] Last Admin: 12/25/16 05:49 Dose: 200 mls/hr Morphine Sulfate (Morphine) 2 mg IVPUSH Q2H PRN PRN Reason: Pain (severe 7-10) Ondansetron HCl (Zofran) 4 mg IVPUSH Q6H PRN PRN Reason: Nausea/Vomiting Alendronate [Fosamax ] 70 MgPt's Own Med 0 each PO Q7D@0600 [facility] Last Admin: 12/24/16 06:12 Dose: 1 each Patient's Own Medication 1 Each Nexium 40 Mg 1 each PO ACBREAKFAST [facility] Last Admin: 12/25/16 05:50 Dose: 1 each Admin: 12/24/16 09:50 Dose: 1 each Polyethylene Glycol (Miralax) 17 gm PO DAILY PRN PRN Reason: Constipation Prednisone (Prednisone) 40 mg PO WITHBREAKFAST [facility] Last Admin: 12/24/16 20:51 Dose: 40 mg Sodium Chloride ([place] Nasal [place]) 0 ml AMMY Q2H PRN PRN Reason: Congestion Tamoxifen Citrate (Nolvadex) 20 mg PO DAILY [facility] Last Admin: 12/24/16 09:52 Dose: 20 mg Admin: 12/23/16 10:05 Dose: 20 mg Vancomycin HCl (Pharmacy To Dose - Vancomycin) 1 dose .XX ASDIRECTED [facility] Zolpidem Tartrate (Ambien) 5 mg PO BEDTIME PRN PRN Reason: Sleep Labs: Laboratory Tests 12/22/16 12/22/16 12/22/16 Range/Units 20:05 20:05 20:05 WBC 8.7 (5.0-10.0) 10^3/uL RBC 4.46 (4.2-5.4) 10^6/uL Hgb 13.0 (12.0-16.0) g/dL Hct 38.2 (37.0-47.0) % MCV 85.7 (80-100) fL MCH 29.1 (27.0-34.0) pg MCHC 34.0 (33.0-35.0) g/dL Plt Count 183 (150-450) 10^3/uL Neut % (Auto) 93.0 H (42.2-75.2) % Lymph % (Auto) 3.6 L (20.5-50.1) % Thayer % (Auto) 2.6 (2-8) % Eos % (Auto) 0.6 L (1.0-3.0) % Baso % (Auto) 0.2 (0.0-1.0) % Sodium 132 L (135-145) mmol/L Potassium 3.6 (3.6-5.0) mmol/L Chloride 100 L (101-111) mmol/L Carbon Dioxide 25.0 (21.0-31.0) mmol/L Anion Gap 10.6 BUN 8 (7-18) mg/dL Creatinine 0.6 (0.6-1.3) mg/dL Est Cr Clr Drug Dosing 63.95 mL/min Estimated GFR (MDRD) > 60 BUN/Creatinine Ratio 13.33 Glucose 190 H (74-105) mg/dL Lactic Acid 1.7 (0.5-2.2) mmol/L Calcium 8.4 (8.4-10.2) mg/dl Total Bilirubin 0.3 (0.2-1.0) mg/dL AST 23 (10-42) IU/L ALT 15 (10-60) IU/L Alkaline Phosphatase 33 L (42-121) IU/L C-Reactive Protein (0.0-1.3) mg/dL B-Natriuretic Peptide (0-100) pg/ml Total Protein 6.7 (6.7-8.2) g/dl Albumin 4.3 (3.2-5.5) g/dl Globulin 2.4 Albumin/Globulin Ratio 1.79 12/22/16 12/22/16 Range/Units 20:05 20:05 WBC (5.0-10.0) 10^3/uL RBC (4.2-5.4) 10^6/uL Hgb (12.0-16.0) g/dL Hct (37.0-47.0) % MCV (80-100) fL MCH (27.0-34.0) pg MCHC (33.0-35.0) g/dL Plt Count (150-450) 10^3/uL Neut % (Auto) (42.2-75.2) % Lymph % (Auto) (20.5-50.1) % Thayer % (Auto) (2-8) % Eos % (Auto) (1.0-3.0) % Baso % (Auto) (0.0-1.0) % Sodium (135-145) mmol/L Potassium (3.6-5.0) mmol/L Chloride (101-111) mmol/L Carbon Dioxide (21.0-31.0) mmol/L Anion Gap BUN (7-18) mg/dL Creatinine (0.6-1.3) mg/dL Est Cr Clr Drug Dosing mL/min Estimated GFR (MDRD) BUN/Creatinine Ratio Glucose (74-105) mg/dL Lactic Acid (0.5-2.2) mmol/L Calcium (8.4-10.2) mg/dl Total Bilirubin (0.2-1.0) mg/dL AST (10-42) IU/L ALT (10-60) IU/L Alkaline Phosphatase (42-121) IU/L C-Reactive Protein 0.6 (0.0-1.3) mg/dL B-Natriuretic Peptide 22 (0-100) pg/ml Total Protein (6.7-8.2) g/dl Albumin (3.2-5.5) g/dl Globulin Albumin/Globulin Ratio Meds: Medications Generic Name Dose Route Start Last Admin Trade Name Freq PRN Reason Stop Dose Admin Acetaminophen 650 mg 12/22/16 22:25 12/24/16 08:50 Tylenol PO 650 mg Q4H PRN Administration Pain (Mild 1-3)/fever Albuterol 2.5 mg 12/22/16 22:25 12/23/16 05:11 Proventil Neb Soln NEB 2.5 mg Q2H PRN Administration shortness of breath/wheezing Albuterol/Ipratropium 3 ml 12/23/16 13:00 12/25/16 06:03 Duoneb 3.0-0.5 Mg/3 Ml NEB 3 ml Q6HRRT [facility] Administration Amlodipine Besylate 10 mg 12/23/16 21:00 12/24/16 20:50 Norvasc PO 10 mg BEDTIME [facility] Administration Ascorbic Acid 500 mg 12/23/16 09:00 12/24/16 09:52 Vitamin C PO 500 mg DAILY [facility] Administration Benzocaine/Menthol 1 lozenge 12/23/16 09:39 12/24/16 01:10 Cepacol Sore Throat MUCMEM 1 lozenge Q4H PRN Administration cough, dry throat Benzonatate 100 mg 12/23/16 09:38 12/24/16 18:49 Tessalon Perles PO 100 mg QID PRN Administration cough, dry throat Budesonide 0.5 mg 12/22/16 22:21 Pulmicort NEB BIDRT PRN Shortness of Breath Cholecalciferol 1,000 units 12/23/16 09:00 12/24/16 09:53 Vitamin D3 PO 1,000 units DAILY [facility] Administration Cyanocobalamin 1,000 mcg 12/23/16 09:00 12/24/16 09:52 Vitamin B12 PO 1,000 mcg DAILY [facility] Administration Enoxaparin Sodium 40 mg 12/23/16 09:00 12/24/16 09:51 Lovenox SUBCUT 40 mg DAILY [facility] Administration Guaifenesin/Codeine Phosphate 10 ml 12/22/16 22:24 12/23/16 03:20 Robitussin Ac PO 10 ml Q4H PRN Administration Cough Sodium Chloride 1,000 mls @ 100 mls/hr 12/24/16 14:15 12/25/16 04:32 Normal Saline IV 100 mls/hr ASDIRECTED [facility] Administration Vancomycin HCl 1 gm/ Sodium 250 mls @ 166.667 mls/hr 12/25/16 14:00 Chloride IV Q24H [facility] Azithromycin 500 mg/ Sodium 250 mls @ 250 mls/hr 12/24/16 23:00 12/24/16 22: 55 Chloride IV 250 mls/hr Q24H [facility] Administration Meropenem 1 gm/ Sodium 100 mls @ 200 mls/hr 12/25/16 06:00 12/25/16 05:49 Chloride IV 200 mls/hr Q12H [facility] Administration Morphine Sulfate 2 mg 12/22/16 22:25 Morphine IVPUSH Q2H PRN Pain (severe 7-10) Ondansetron HCl 4 mg 12/22/16 22:25 Zofran IVPUSH Q6H PRN Nausea/Vomiting Alendronate [Fosamax 0 each 12/24/16 06:00 12/24/16 06:12 ] 70 MgPt's Own PO 1 each Med Q7D@0600 [facility] Administration Patient's Own 1 each 12/24/16 06:00 12/25/16 05:50 Medication 1 Each PO 1 each Nexium 40 Mg ACBREAKFAST [facility] Administration Polyethylene Glycol 17 gm 12/22/16 22:25 Miralax PO DAILY PRN Constipation Prednisone 40 mg 12/24/16 21:00 12/24/16 20:51 Prednisone PO 40 mg WITHBREAKFAST [facility] Administration Sodium Chloride 0 ml 12/22/16 22:48 [place] Nasal [place] AMMY Q2H PRN Congestion Tamoxifen Citrate 20 mg 12/23/16 09:00 12/24/16 09:52 Nolvadex PO 20 mg DAILY [facility] Administration Vancomycin HCl 1 dose 12/24/16 11:00 Pharmacy To Dose - Vancomycin .XX ASDIRECTED [facility] Zolpidem Tartrate 5 mg 12/22/16 22:25 Ambien PO BEDTIME PRN Sleep Discontinued Medications Generic Name Dose Route Start Last Admin Trade Name Freq PRN Reason Stop Dose Admin Albuterol 2.5 mg 12/22/16 21:10 12/22/16 21:12 Proventil Neb Soln NEB 12/22/16 21:11 2.5 mg ONETIME ONE Administration Albuterol Confirm 12/22/16 21:11 12/22/16 22:13 Proventil Neb Soln Administered 12/22/16 21:12 Not Given Dose 2.5 mg .ROUTE .STK-MED ONE Albuterol/Ipratropium 3 ml 12/22/16 19:54 12/22/16 20:00 Duoneb 3.0-0.5 Mg/3 Ml NEB 12/22/16 19:55 3 ml ONETIME ONE Administration Albuterol/Ipratropium 3 ml 12/22/16 23:00 12/23/16 07:28 Duoneb 3.0-0.5 Mg/3 Ml NEB 3 ml Q4HRRT [facility] Administration Furosemide 40 mg 12/24/16 11:01 12/24/16 12:35 Lasix PO 12/24/16 11:02 40 mg ONETIME ONE Administration Guaifenesin/Codeine Phosphate 5 ml 12/22/16 21:10 12/22/16 21:13 Robitussin Ac PO 12/22/16 21:11 5 ml ONETIME ONE Administration Azithromycin 500 mg/ Sodium 250 mls @ 250 mls/hr 12/22/16 22:00 12/23/16 00: 38 Chloride IV Not Given Q24H [facility] Sodium Chloride 1,000 mls @ 125 mls/hr 12/22/16 22:30 12/22/16 23:10 Normal Saline IV 125 mls/hr ASDIRECTED [facility] Administration Ceftriaxone Sodium 1 gm/ 50 mls @ 100 mls/hr 12/22/16 22:00 12/22/16 23:10 Sodium Chloride IV 100 mls/hr Q24H [facility] Administration Azithromycin 500 mg/ Sodium 250 mls @ 250 mls/hr 12/22/16 23:00 12/23/16 22: 55 Chloride IV 250 mls/hr Q24H [facility] Administration Magnesium Sulfate 2 gm/ Premix 50 mls @ 25 mls/hr 12/23/16 08:04 12/23/16 12: 50 IV 12/23/16 10:03 Infused ONETIME ONE Infusion Ceftriaxone Sodium 1 gm/ 50 mls @ 100 mls/hr 12/23/16 22:00 12/23/16 21:43 Sodium Chloride IV 100 mls/hr Q24H [facility] Administration Piperacillin Sod/Tazobactam 100 mls @ 200 mls/hr 12/24/16 11:00 12/24/16 12: 34 Sod 3.375 gm/ Sodium Chloride IV 200 mls/hr Q8H [facility] Administration Vancomycin HCl 1.25 gm/ Sodium 250 mls @ 167 mls/hr 12/24/16 10:59 12/24/16 15:00 Chloride IV 12/24/16 12:28 167 mls/hr ONETIME ONE Administration Sodium Chloride 500 mls @ 100 mls/hr 12/24/16 13:15 Normal Saline IV ASDIRECTED [facility] Tobramycin 280 mg/ Sodium 107 mls @ 107 mls/hr 12/24/16 15:00 12/24/16 17:29 Chloride IV Not Given Q48H [facility] Piperacillin Sod/Tazobactam 100 mls @ 200 mls/hr 12/24/16 20:00 Sod 3.375 gm/ Sodium Chloride IV Q8H [facility] Meropenem 1 gm/ Sodium 100 mls @ 200 mls/hr 12/24/16 18:00 12/24/16 18:13 Chloride IV 200 mls/hr Q8H [facility] Administration Methylprednisolone Sodium Succinate 125 mg 12/22/16 20:06 12/22/16 20:44 Solu-Medrol IVPUSH 12/22/16 20:07 125 mg ONETIME ONE Administration Methylprednisolone Sodium Succinate 125 mg 12/23/16 09:00 12/23/16 21:41 Solu-Medrol IVPUSH 125 mg Q12H [facility] Administration Methylprednisolone Sodium Succinate 125 mg 12/23/16 06:00 12/24/16 06:51 Solu-Medrol IVPUSH 125 mg Q12H [facility] Administration Omeprazole 40 mg 12/23/16 06:00 12/23/16 06:29 Omeprazole PO 40 mg ACBREAKFAST [facility] Administration Potassium Chloride 40 meq 12/23/16 08:04 12/23/16 10:04 Klor-Con 10 PO 12/23/16 08:05 40 meq ONETIME ONE Administration Potassium Chloride 20 meq 12/23/16 11:59 12/23/16 13:06 Klor-Con 10 PO 12/23/16 12:00 20 meq ONETIME ONE Administration Tobramycin 1 dose 12/24/16 13:30 Pharmacy To Dose - Tobramycin .XX ASDIRECTED [facility] - Re-Assessments/Exams Free Text/Narrative Re-Assessment/Exam: 12/25/16 06:51 continued cough with minimal improvement despite nebs. Sats maintained. Dr. Goss agreeable for admission exacerbation of asthma and URI. Departure - Departure Time of Disposition: 22:15 Disposition: Admitted As Inpatient 65 Condition: fair Clinical Impression: Acute asthma, Hyponatremia, Bronchospasm, acute URI (upper respiratory infection) Qualifiers: URI type: unspecified URI Qualified Code(s): J06.9 - Acute upper respiratory infection, unspecified - Discharge Information
[2016-12-25 07:02] LABS: CHLORIDE,CL 104 mmol/L (101-111); SODIUM,NA 134 mmol/L (135-145)
[2016-12-25] MEDS: Ascorbic Acid 500 MG Tab PO SCH (09:25)
[2016-12-25] MEDS: Benzonatate 100 MG Cap PO PRN (09:26)
[2016-12-25] MEDS: Benzocaine/Cetylpyridinium/Menthol Lozenge MUCMEM PRN (09:26)
[2016-12-25] MEDS: Tamoxifen 10 MG Tab PO SCH (09:26)
[2016-12-25] MEDS: predniSONE 20 MG Tab PO SCH (09:27)
[2016-12-25] MEDS: Cholecalciferol (Vitamin D3) 400 Unit Tab PO SCH (09:27)
[2016-12-25] MEDS: Enoxaparin 40 MG/0.4 ML Syringe SUBCUT SCH (09:31)
[2016-12-25] MEDS: Cyanocobalamin (Vitamin B12) 100 MCG Tab PO SCH (09:40)
[2016-12-25] MEDS: Albuterol 0.083% 2.5 MG/3 ML Neb Soln NEB PRN ×2 (09:56→14:34)
[2016-12-25] MEDS ORDERED: Potassium Chloride 10 MEQ Tab.ER PO ONE (10:16)
[2016-12-25] MEDS ORDERED: Calcium Gluconate 1 GM in Sodium Chloride 0.9% 100 ML IV ONE (10:25)
--- NOTE | 2016-12-25 11:36 | PCM.PN ---
- General Info Date of Service: 12/25/16 Admission Dx/Problem (Free Text): Admission Diagnosis/Problem Admission Diagnosis/Problem Asthmatic bronchitis Subjective Update: Patient stated that she is feeling better than yesterday. The sinus pressure improved and she denies fever since changing the antibiotic yesterday. Now she is coughing up green sputum. She denies chills, nausea, vomiting, chest pain, abdominal pain, unilateral weakness/numbness, swelling of the legs. - Patient Data Vitals - most recent: Last Vital Signs Temp 36.9 C 12/25/16 11:18 Pulse 83 12/25/16 11:18 Resp 20 12/25/16 11:18 BP 124/60 12/25/16 11:18 Pulse Ox 99 12/25/16 11:18 Weight - most recent: 66.587 kg I&O - last 24 hours: Intake & Output 12/24/16 12/25/16 12/25/16 22:59 06:59 14:59 Intake Total 1660 2755 Output Total 2100 2250 300 Balance -440 505 -300 Lab Results last 24 hrs: Laboratory Results - last 24 hr 12/24/16 12/24/16 12/25/16 Range/Units 06:40 11:20 06:10 WBC (5.0-10.0) 10^3/uL RBC (4.2-5.4) 10^6/uL Hgb (12.0-16.0) g/dL Hct (37.0-47.0) % MCV (80-100) fL MCH (27.0-34.0) pg MCHC (33.0-35.0) g/dL Plt Count (150-450) 10^3/uL Neut % (Auto) (42.2-75.2) % Lymph % (Auto) (20.5-50.1) % Harmon % (Auto) (2-8) % Eos % (Auto) (1.0-3.0) % Baso % (Auto) (0.0-1.0) % Sodium (135-145) mmol/L Potassium (3.6-5.0) mmol/L Chloride (101-111) mmol/L Carbon Dioxide (21.0-31.0) mmol/L Anion Gap BUN (7-18) mg/dL Creatinine (0.6-1.3) mg/dL Est Cr Clr Drug Dosing mL/min Estimated GFR (MDRD) Glucose (74-105) mg/dL Lactic Acid 3.1 H (0.5-2.2) mmol/L Calcium (8.4-10.2) mg/dl C-Reactive Protein < 0.5 < 0.5 (0.0-1.3) mg/dL 12/25/16 12/25/16 Range/Units 06:10 06:10 WBC 16.6 H (5.0-10.0) 10^3/uL RBC 3.99 L (4.2-5.4) 10^6/uL Hgb 11.8 L (12.0-16.0) g/dL Hct 35.1 L (37.0-47.0) % MCV 88.0 (80-100) fL MCH 29.6 (27.0-34.0) pg MCHC 33.6 (33.0-35.0) g/dL Plt Count 210 (150-450) 10^3/uL Neut % (Auto) 90.9 H (42.2-75.2) % Lymph % (Auto) 4.8 L (20.5-50.1) % Harmon % (Auto) 4.2 (2-8) % Eos % (Auto) 0.0 L (1.0-3.0) % Baso % (Auto) 0.1 (0.0-1.0) % Sodium 134 L (135-145) mmol/L Potassium 3.5 L (3.6-5.0) mmol/L Chloride 104 (101-111) mmol/L Carbon Dioxide 25.0 (21.0-31.0) mmol/L Anion Gap 8.5 BUN 14 (7-18) mg/dL Creatinine 0.6 (0.6-1.3) mg/dL Est Cr Clr Drug Dosing 63.95 mL/min Estimated GFR (MDRD) > 60 Glucose 108 H (74-105) mg/dL Lactic Acid (0.5-2.2) mmol/L Calcium 7.7 L (8.4-10.2) mg/dl C-Reactive Protein (0.0-1.3) mg/dL Piyush Results last 24 hrs: Microbiology 12/24/16 13:50 Gram Stain - Final Sputum - Induced Sputum Culture - Preliminary 12/24/16 11:35 Anaerobic Blood Culture - Final Blood - Venous - Lab Draw Med Orders - Current: Current Medications Acetaminophen (Tylenol) 650 mg PO Q4H PRN PRN Reason: Pain (Mild 1-3)/fever Last Admin: 12/24/16 08:50 Dose: 650 mg Albuterol (Proventil Neb Soln) 2.5 mg NEB Q2H PRN PRN Reason: shortness of breath/wheezing Last Admin: 12/25/16 09:56 Dose: 2.5 mg Albuterol/Ipratropium (Duoneb 3.0-0.5 Mg/3 Ml) 3 ml NEB Q6HRRT [facility] Last Admin: 12/25/16 06:03 Dose: 3 ml Amlodipine Besylate (Norvasc) 10 mg PO BEDTIME [facility] Last Admin: 12/24/16 20:50 Dose: 10 mg Ascorbic Acid (Vitamin C) 500 mg PO DAILY [facility] Last Admin: 12/25/16 09:25 Dose: 500 mg Benzocaine/Menthol (Cepacol Sore Throat) 1 lozenge MUCMEM Q4H PRN PRN Reason: cough, dry throat Last Admin: 12/25/16 09:26 Dose: 1 lozenge Benzonatate (Tessalon Perles) 100 mg PO QID PRN PRN Reason: cough, dry throat Last Admin: 12/25/16 09:26 Dose: 100 mg Budesonide (Pulmicort) 0.5 mg NEB BIDRT PRN PRN Reason: Shortness of Breath Cholecalciferol (Vitamin D3) 1,000 units PO DAILY [facility] Last Admin: 12/25/16 09:27 Dose: 1,000 units Cyanocobalamin (Vitamin B12) 1,000 mcg PO DAILY [facility] Last Admin: 12/25/16 09:40 Dose: Not Given Enoxaparin Sodium (Lovenox) 40 mg SUBCUT DAILY [facility] Last Admin: 12/25/16 09:31 Dose: 40 mg Guaifenesin/Codeine Phosphate (Robitussin Ac) 10 ml PO Q4H PRN PRN Reason: Cough Last Admin: 12/23/16 03:20 Dose: 10 ml Sodium Chloride (Normal Saline) 1,000 mls @ 100 mls/hr IV ASDIRECTED [facility] Last Admin: 12/25/16 04:32 Dose: 100 mls/hr Vancomycin HCl 1 gm/ Sodium (Chloride) 250 mls @ 166.667 mls/hr IV Q24H [facility] Azithromycin 500 mg/ Sodium (Chloride) 250 mls @ 250 mls/hr IV Q24H [facility] Last Admin: 12/24/16 22:55 Dose: 250 mls/hr Meropenem 1 gm/ Sodium (Chloride) 100 mls @ 200 mls/hr IV Q12H [facility] Last Admin: 12/25/16 05:49 Dose: 200 mls/hr Calcium Gluconate 1 gm/ Sodium (Chloride) 110 mls @ 100 mls/hr IV ONETIME ONE Stop: 12/25/16 11:30 Morphine Sulfate (Morphine) 2 mg IVPUSH Q2H PRN PRN Reason: Pain (severe 7-10) Ondansetron HCl (Zofran) 4 mg IVPUSH Q6H PRN PRN Reason: Nausea/Vomiting Alendronate [Fosamax ] 70 MgPt's Own Med 0 each PO Q7D@0600 [facility] Last Admin: 12/24/16 06:12 Dose: 1 each Patient's Own Medication 1 Each Nexium 40 Mg 1 each PO ACBREAKFAST [facility] Last Admin: 12/25/16 05:50 Dose: 1 each Polyethylene Glycol (Miralax) 17 gm PO DAILY PRN PRN Reason: Constipation Prednisone (Prednisone) 40 mg PO WITHBREAKFAST [facility] Last Admin: 12/25/16 09:27 Dose: 40 mg Sodium Chloride ([place] Nasal [place]) 0 ml AMMY Q2H PRN PRN Reason: Congestion Tamoxifen Citrate (Nolvadex) 20 mg PO DAILY [facility] Last Admin: 12/25/16 09:26 Dose: 20 mg Vancomycin HCl (Pharmacy To Dose - Vancomycin) 1 dose .XX ASDIRECTED [facility] Zolpidem Tartrate (Ambien) 5 mg PO BEDTIME PRN PRN Reason: Sleep Discontinued Medications Albuterol (Proventil Neb Soln) 2.5 mg NEB ONETIME ONE Stop: 12/22/16 21:11 Last Admin: 12/22/16 21:12 Dose: 2.5 mg Albuterol (Proventil Neb Soln) Confirm Administered Dose 2.5 mg .ROUTE .STK-MED ONE Stop: 12/22/16 21:12 Last Admin: 12/22/16 22:13 Dose: Not Given Albuterol/Ipratropium (Duoneb 3.0-0.5 Mg/3 Ml) 3 ml NEB ONETIME ONE Stop: 12/22/16 19:55 Last Admin: 12/22/16 20:00 Dose: 3 ml Albuterol/Ipratropium (Duoneb 3.0-0.5 Mg/3 Ml) 3 ml NEB Q4HRRT [facility] Last Admin: 12/23/16 07:28 Dose: 3 ml Furosemide (Lasix) 40 mg PO ONETIME ONE Stop: 12/24/16 11:02 Last Admin: 12/24/16 12:35 Dose: 40 mg Guaifenesin/Codeine Phosphate (Robitussin Ac) 5 ml PO ONETIME ONE Stop: 12/22/16 21:11 Last Admin: 12/22/16 21:13 Dose: 5 ml Azithromycin 500 mg/ Sodium (Chloride) 250 mls @ 250 mls/hr IV Q24H [facility] Last Admin: 12/23/16 00:38 Dose: Not Given Sodium Chloride (Normal Saline) 1,000 mls @ 125 mls/hr IV ASDIRECTED [facility] Last Admin: 12/22/16 23:10 Dose: 125 mls/hr Ceftriaxone Sodium 1 gm/ (Sodium Chloride) 50 mls @ 100 mls/hr IV Q24H [facility] Last Admin: 12/22/16 23:10 Dose: 100 mls/hr Azithromycin 500 mg/ Sodium (Chloride) 250 mls @ 250 mls/hr IV Q24H [facility] Last Admin: 12/23/16 22:55 Dose: 250 mls/hr Magnesium Sulfate 2 gm/ Premix 50 mls @ 25 mls/hr IV ONETIME ONE Stop: 12/23/16 10:03 Last Infusion: 12/23/16 12:50 Dose: Infused Ceftriaxone Sodium 1 gm/ (Sodium Chloride) 50 mls @ 100 mls/hr IV Q24H [facility] Last Admin: 12/23/16 21:43 Dose: 100 mls/hr Piperacillin Sod/Tazobactam (Sod 3.375 gm/ Sodium Chloride) 100 mls @ 200 mls/ hr IV Q8H [facility] Last Admin: 12/24/16 12:34 Dose: 200 mls/hr Vancomycin HCl 1.25 gm/ Sodium (Chloride) 250 mls @ 167 mls/hr IV ONETIME ONE Stop: 12/24/16 12:28 Last Admin: 12/24/16 15:00 Dose: 167 mls/hr Sodium Chloride (Normal Saline) 500 mls @ 100 mls/hr IV ASDIRECTED [facility] Tobramycin 280 mg/ Sodium (Chloride) 107 mls @ 107 mls/hr IV Q48H [facility] Last Admin: 12/24/16 17:29 Dose: Not Given Piperacillin Sod/Tazobactam (Sod 3.375 gm/ Sodium Chloride) 100 mls @ 200 mls/ hr IV Q8H [facility] Meropenem 1 gm/ Sodium (Chloride) 100 mls @ 200 mls/hr IV Q8H [facility] Last Admin: 12/24/16 18:13 Dose: 200 mls/hr Methylprednisolone Sodium Succinate (Solu-Medrol) 125 mg IVPUSH ONETIME ONE Stop: 12/22/16 20:07 Last Admin: 12/22/16 20:44 Dose: 125 mg Methylprednisolone Sodium Succinate (Solu-Medrol) 125 mg IVPUSH Q12H [facility] Last Admin: 12/23/16 21:41 Dose: 125 mg Methylprednisolone Sodium Succinate (Solu-Medrol) 125 mg IVPUSH Q12H [facility] Last Admin: 12/24/16 06:51 Dose: 125 mg Omeprazole (Omeprazole) 40 mg PO ACBREAKFAST [facility] Last Admin: 12/23/16 06:29 Dose: 40 mg Potassium Chloride (Klor-Con 10) 40 meq PO ONETIME ONE Stop: 12/23/16 08:05 Last Admin: 12/23/16 10:04 Dose: 40 meq Potassium Chloride (Klor-Con 10) 20 meq PO ONETIME ONE Stop: 12/23/16 12:00 Last Admin: 12/23/16 13:06 Dose: 20 meq Potassium Chloride (Klor-Con 10) 20 meq PO ONETIME ONE Stop: 12/25/16 10:17 Last Admin: 12/25/16 11:01 Dose: 20 meq Tobramycin (Pharmacy To Dose - Tobramycin) 1 dose .XX ASDIRECTED [facility] - Exam General: alert, oriented, cooperative, no acute distress (somewhat looks ill). No: moderate distress, severe distress, sedated, lethargic, obtunded HEENT: Pupils equal, Pupils reactive, EOMI, Mucous membr. moist/pink Neck: supple Lungs: Normal respiratory effort, Decreased breath sounds (with fair air exchange, improved from yesterday), Rhonchi, Wheezing. No: Rales, Rub, Stridor Cardiovascular: Regular Rate, Regular Rhythm Abdomen: bowel sounds present, soft, no tenderness, no distension (Female) Exam: Deferred Back Exam: Normal Inspection Extremities: no edema, normal pulses, no tenderness/swelling, no clubbing, no cyanosis, no calf tenderness Skin: warm, dry, intact Neurological: no new focal deficit Psy/Mental Status: alert, normal affect, normal mood - Problem List & Annotations (1) Persistent cough SNOMED Code(s): 625816420 Code(s): R05 - COUGH Status: Acute Current Visit: Yes (2) Chronic sinusitis SNOMED Code(s): 47533590 Code(s): J32.9 - CHRONIC SINUSITIS, UNSPECIFIED Status: Chronic Current Visit: Yes (3) Asthma exacerbation SNOMED Code(s): 075475638 Code(s): J45.901 - UNSPECIFIED ASTHMA WITH (ACUTE) EXACERBATION Status: Acute Priority: High Current Visit: Yes (4) Bronchiectasis SNOMED Code(s): 74832270 Code(s): J47.9 - BRONCHIECTASIS, UNCOMPLICATED Status: Chronic Current Visit: Yes (5) Essential hypertension SNOMED Code(s): 96840413 Code(s): I10 - ESSENTIAL (PRIMARY) HYPERTENSION Status: Chronic Current Visit: Yes (6) Multiple sclerosis SNOMED Code(s): 03365471 Code(s): G35 - MULTIPLE SCLEROSIS Status: Chronic Current Visit: Yes (7) GERD (gastroesophageal reflux disease) SNOMED Code(s): 209709690 Code(s): K21.9 - GASTRO-ESOPHAGEAL REFLUX DISEASE WITHOUT ESOPHAGITIS Status: Chronic Current Visit: Yes (8) Gastroesophageal reflux disease SNOMED Code(s): 817037487 Code(s): K21.9 - GASTRO-ESOPHAGEAL REFLUX DISEASE WITHOUT ESOPHAGITIS Status: Chronic Current Visit: No (9) Acute sinusitis SNOMED Code(s): 25411695 Code(s): J01.90 - ACUTE SINUSITIS, UNSPECIFIED Status: Acute Current Visit: Yes (10) Hypokalemia SNOMED Code(s): 02744596 Code(s): E87.6 - HYPOKALEMIA Status: Acute Current Visit: Yes (11) Hypocalcemia SNOMED Code(s): 7565450 Code(s): E83.51 - HYPOCALCEMIA Status: Acute Current Visit: Yes - Problem List Review Problem List Initiated/Reviewed/Updated: Yes - My Orders Last 24 Hours: My Active Orders 12/24/16 10:59 Blood Culture x2 Reflex Set [OM.PC] Stat 12/24/16 11:00 Vancomycin Pharmacy to Dose [Pharmacy to Dose - Vancomycin] 1 dose .XX ASDIRECTED 12/24/16 11:20 CULTURE BLOOD [BC] Stat 12/24/16 11:30 CXR [Chest 2V] [CR] Routine 12/24/16 11:35 CULTURE BLOOD [BC] Stat 12/24/16 14:15 Sodium Chloride 0.9% [Normal Saline] 1,000 ml IV ASDIRECTED 12/24/16 21:00 predniSONE 40 mg PO WITHBREAKFAST 12/24/16 23:00 Azithromycin [Zithromax] 500 mg Sodium Chloride 0.9% [Normal Saline] 250 ml IV Q24H 12/25/16 06:00 Meropenem [Merrem] 1 gm Sodium Chloride 0.9% [Normal Saline] 100 ml IV Q12H 12/25/16 10:25 Calcium Gluconate 1 gm Sodium Chloride 0.9% [Normal Saline] 100 ml IV ONETIME 12/25/16 14:00 Vancomycin [Vancocin] 1 gm Sodium Chloride 0.9% [Normal Saline] 250 ml IV Q24H - Plan Plan:: Possible sepsis WBC increased From 7.7 to 20,000 despite being on IV antibiotic. Part of it could be related to IV steroids lactic acid increased to 3.1 Compared to -today WBC dropped to 16,000 -awaiting repeated lood cultures results -Initial blood cultures are still negative -Awaiting sputum culture result her Rocephin and azithromycin were changed on 12/24/13 to azithromycin, meropenem , and vancomycin -IV fluid infusion Acute on chronic sinusitis Despite being on IV antibiotic with Rocephin and azithromycin patient developed fever In addition to increasing in her sinus symptoms her Rocephin and azithromycin were changed on 12/24/13 to azithromycin, meropenem , and vancomycin saline nasal spray asthma exacerbation with possible bronchitis, failed outpatient treatment Duoneb every 6 hours Budesonide b.i.d. started Methylprednisone 125 mg b.i.d. on admission then changed to oral prednisone 40 mg daily on 12/24/16 Rocephin and azithromycin empirically -repeated chest x-ray is questionable for pneumonia, also is a report indicates no acute findings Persistent productive cough Robitussin/codeine, Tessalon, Cepacol p.r.n. Chronic Bronchiectasis Resume home medications in addition to the above treatment Incentives spirometer and flutter Hypomagnesemia Replaced by IV Hypokalemia Replace orally Hypocalcemia One dose of calcium gluconate 1g IV is given GERD Continue PPI Essential hypertension Continue amlodipine Multiple sclerosis Not active Hyperlipidemia, chronic Continue statin Lovenox for DVT prophylaxis Patient wants to be full code
[2016-12-25] MEDS: amLODIPine 5 MG Tab PO SCH (20:42)
[2016-12-25] MEDS: Codeine/guaiFENesin 100-10 MG/5 ML Syrup 5 ML Cup PO PRN (20:42)
[2016-12-25] MEDS: Azithromycin 500 MG in Sodium Chloride 0.9% 250 ML IV SCH (23:22)
[2016-12-26] MEDS: Benzonatate 100 MG Cap PO PRN ×2 (00:26→13:24)
[2016-12-26] MEDS: Codeine/guaiFENesin 100-10 MG/5 ML Syrup 5 ML Cup PO PRN ×4 (00:27→23:00)
[2016-12-26] MEDS: Albuterol/Ipratropium 3.0-0.5 MG/3 ML Neb Soln NEB SCH ×6 (00:31→22:49)
[2016-12-26] MEDS: Sodium Chloride 0.9% 1,000 ML IV SCH (05:18)
[2016-12-26] MEDS: Meropenem 1 GM in Sodium Chloride 0.9% 100 ML IV SCH ×2 (05:36→17:49)
[2016-12-26] MEDS: ALENDRONATE 70 MG PO SCH (05:38)
[2016-12-26] MEDS: NEXIUM 40 MG PO SCH (05:39)
[2016-12-26] MEDS: Cholecalciferol (Vitamin D3) 400 Unit Tab PO SCH (08:24)
[2016-12-26] MEDS: Ascorbic Acid 500 MG Tab PO SCH (08:26)
[2016-12-26] MEDS: predniSONE 20 MG Tab PO SCH (08:26)
[2016-12-26] MEDS: Enoxaparin 40 MG/0.4 ML Syringe SUBCUT SCH (08:28)
[2016-12-26] MEDS: Tamoxifen 10 MG Tab PO SCH (08:28)
[2016-12-26 09:48] LABS: CHLORIDE,CL 105 mmol/L (101-111); SODIUM,NA 138 mmol/L (135-145)
--- NOTE | 2016-12-26 11:13 | PCM.PN ---
- General Info Date of Service: 12/26/16 Admission Dx/Problem (Free Text): Admission Diagnosis/Problem Admission Diagnosis/Problem Asthmatic bronchitis Subjective Update: Patient stated that her cough and breathing is much better than yesterday but she is still draining a lot of green stuff from her nose. She felt slightly warm and had low-grade fever last night. She denies chills, nausea, vomiting, chest pain, abdominal pain, unilateral weakness/numbness, swelling of the legs. - Patient Data Vitals - most recent: Last Vital Signs Temp 36.9 C 12/26/16 07:00 Pulse 97 12/26/16 07:13 Resp 20 12/26/16 07:00 BP 141/71 H 12/26/16 07:00 Pulse Ox 100 12/26/16 07:00 Weight - most recent: 66.497 kg I&O - last 24 hours: Intake & Output 12/25/16 12/26/16 12/26/16 22:59 06:59 14:59 Intake Total 1756 2290 Output Total 3450 7320 900 Balance -0784 -5082 -900 Lab Results last 24 hrs: Laboratory Results - last 24 hr 12/26/16 12/26/16 12/26/16 Range/Units 06:06 06:06 06:06 WBC 8.8 (5.0-10.0) 10^3/uL RBC 4.04 L (4.2-5.4) 10^6/uL Hgb 11.8 L (12.0-16.0) g/dL Hct 35.8 L (37.0-47.0) % MCV 88.6 (80-100) fL MCH 29.2 (27.0-34.0) pg MCHC 33.0 (33.0-35.0) g/dL Plt Count 199 (150-450) 10^3/uL Neut % (Auto) 71.5 (42.2-75.2) % Lymph % (Auto) 18.5 L (20.5-50.1) % Turner % (Auto) 9.0 H (2-8) % Eos % (Auto) 0.9 L (1.0-3.0) % Baso % (Auto) 0.1 (0.0-1.0) % Sodium 138 (135-145) mmol/L Potassium 3.7 (3.6-5.0) mmol/L Chloride 105 (101-111) mmol/L Carbon Dioxide 29.0 (21.0-31.0) mmol/L Anion Gap 7.7 BUN 8 (7-18) mg/dL Creatinine 0.5 L (0.6-1.3) mg/dL Est Cr Clr Drug Dosing 76.74 mL/min Estimated GFR (MDRD) > 60 Glucose 83 (74-105) mg/dL Lactic Acid (0.5-2.2) mmol/L Calcium 8.1 L (8.4-10.2) mg/dl Phosphorus 2.1 L (2.5-4.6) mg/dL Magnesium 2.1 (1.8-2.5) mg/dL 12/26/16 Range/Units 09:47 WBC (5.0-10.0) 10^3/uL RBC (4.2-5.4) 10^6/uL Hgb (12.0-16.0) g/dL Hct (37.0-47.0) % MCV (80-100) fL MCH (27.0-34.0) pg MCHC (33.0-35.0) g/dL Plt Count (150-450) 10^3/uL Neut % (Auto) (42.2-75.2) % Lymph % (Auto) (20.5-50.1) % Turner % (Auto) (2-8) % Eos % (Auto) (1.0-3.0) % Baso % (Auto) (0.0-1.0) % Sodium (135-145) mmol/L Potassium (3.6-5.0) mmol/L Chloride (101-111) mmol/L Carbon Dioxide (21.0-31.0) mmol/L Anion Gap BUN (7-18) mg/dL Creatinine (0.6-1.3) mg/dL Est Cr Clr Drug Dosing mL/min Estimated GFR (MDRD) Glucose (74-105) mg/dL Lactic Acid 1.6 (0.5-2.2) mmol/L Calcium (8.4-10.2) mg/dl Phosphorus (2.5-4.6) mg/dL Magnesium (1.8-2.5) mg/dL Piyush Results last 24 hrs: Microbiology 12/24/16 13:50 Gram Stain - Final Sputum - Induced Sputum Culture - Final Klebsiella Pneumoniae 12/24/16 11:35 Aerobic Blood Culture - Preliminary Blood - Venous - Lab Draw NO GROWTH AFTER 1 DAY Anaerobic Blood Culture - Final 12/24/16 11:20 Aerobic Blood Culture - Preliminary Blood - Venous NO GROWTH AFTER 1 DAY Anaerobic Blood Culture - Preliminary NO GROWTH AFTER 1 DAY Med Orders - Current: Current Medications Acetaminophen (Tylenol) 650 mg PO Q4H PRN PRN Reason: Pain (Mild 1-3)/fever Last Admin: 12/24/16 08:50 Dose: 650 mg Albuterol (Proventil Neb Soln) 2.5 mg NEB Q2H PRN PRN Reason: shortness of breath/wheezing Last Admin: 12/25/16 14:34 Dose: 2.5 mg Albuterol/Ipratropium (Duoneb 3.0-0.5 Mg/3 Ml) 3 ml NEB Q6HRRT [facility] Last Admin: 12/26/16 07:13 Dose: 3 ml Amlodipine Besylate (Norvasc) 10 mg PO BEDTIME [facility] Last Admin: 12/25/16 20:42 Dose: 10 mg Ascorbic Acid (Vitamin C) 500 mg PO DAILY [facility] Last Admin: 12/26/16 08:26 Dose: 500 mg Benzocaine/Menthol (Cepacol Sore Throat) 1 lozenge MUCMEM Q4H PRN PRN Reason: cough, dry throat Last Admin: 12/25/16 09:26 Dose: 1 lozenge Benzonatate (Tessalon Perles) 100 mg PO QID PRN PRN Reason: cough, dry throat Last Admin: 12/26/16 00:26 Dose: 100 mg Budesonide (Pulmicort) 0.5 mg NEB BIDRT PRN PRN Reason: Shortness of Breath Cholecalciferol (Vitamin D3) 1,000 units PO DAILY [facility] Last Admin: 12/26/16 08:24 Dose: 1,000 units Cyanocobalamin (Vitamin B12) 1,000 mcg PO DAILY [facility] Last Admin: 12/25/16 09:40 Dose: Not Given Enoxaparin Sodium (Lovenox) 40 mg SUBCUT DAILY [facility] Last Admin: 12/26/16 08:28 Dose: 40 mg Guaifenesin/Codeine Phosphate (Robitussin Ac) 10 ml PO Q4H PRN PRN Reason: Cough Last Admin: 12/26/16 05:34 Dose: 10 ml Azithromycin 500 mg/ Sodium (Chloride) 250 mls @ 250 mls/hr IV Q24H [facility] Last Admin: 12/25/16 23:22 Dose: 250 mls/hr Meropenem 1 gm/ Sodium (Chloride) 100 mls @ 200 mls/hr IV Q12H [facility] Last Admin: 12/26/16 05:36 Dose: 200 mls/hr Vancomycin HCl 1 gm/ Sodium (Chloride) 250 mls @ 166.667 mls/hr IV Q24H [facility] Morphine Sulfate (Morphine) 2 mg IVPUSH Q2H PRN PRN Reason: Pain (severe 7-10) Ondansetron HCl (Zofran) 4 mg IVPUSH Q6H PRN PRN Reason: Nausea/Vomiting Alendronate [Fosamax ] 70 MgPt's Own Med 0 each PO Q7D@0600 [facility] Last Admin: 12/26/16 05:38 Dose: 1 each Patient's Own Medication 1 Each Nexium 40 Mg 1 each PO ACBREAKFAST [facility] Last Admin: 12/26/16 05:39 Dose: 1 each Polyethylene Glycol (Miralax) 17 gm PO DAILY PRN PRN Reason: Constipation Prednisone (Prednisone) 40 mg PO WITHBREAKFAST [facility] Last Admin: 12/26/16 08:26 Dose: 40 mg Sodium Chloride ([place] Nasal [place]) 0 ml AMMY Q2H PRN PRN Reason: Congestion Tamoxifen Citrate (Nolvadex) 20 mg PO DAILY [facility] Last Admin: 12/26/16 08:28 Dose: 20 mg Vancomycin HCl (Pharmacy To Dose - Vancomycin) 1 dose .XX ASDIRECTED [facility] Zolpidem Tartrate (Ambien) 5 mg PO BEDTIME PRN PRN Reason: Sleep Discontinued Medications Albuterol (Proventil Neb Soln) 2.5 mg NEB ONETIME ONE Stop: 12/22/16 21:11 Last Admin: 12/22/16 21:12 Dose: 2.5 mg Albuterol (Proventil Neb Soln) Confirm Administered Dose 2.5 mg .ROUTE .STK-MED ONE Stop: 12/22/16 21:12 Last Admin: 12/22/16 22:13 Dose: Not Given Albuterol/Ipratropium (Duoneb 3.0-0.5 Mg/3 Ml) 3 ml NEB ONETIME ONE Stop: 12/22/16 19:55 Last Admin: 12/22/16 20:00 Dose: 3 ml Albuterol/Ipratropium (Duoneb 3.0-0.5 Mg/3 Ml) 3 ml NEB Q4HRRT [facility] Last Admin: 12/23/16 07:28 Dose: 3 ml Furosemide (Lasix) 40 mg PO ONETIME ONE Stop: 12/24/16 11:02 Last Admin: 12/24/16 12:35 Dose: 40 mg Guaifenesin/Codeine Phosphate (Robitussin Ac) 5 ml PO ONETIME ONE Stop: 12/22/16 21:11 Last Admin: 12/22/16 21:13 Dose: 5 ml Azithromycin 500 mg/ Sodium (Chloride) 250 mls @ 250 mls/hr IV Q24H [facility] Last Admin: 12/23/16 00:38 Dose: Not Given Sodium Chloride (Normal Saline) 1,000 mls @ 125 mls/hr IV ASDIRECTED [facility] Last Admin: 12/22/16 23:10 Dose: 125 mls/hr Ceftriaxone Sodium 1 gm/ (Sodium Chloride) 50 mls @ 100 mls/hr IV Q24H [facility] Last Admin: 12/22/16 23:10 Dose: 100 mls/hr Azithromycin 500 mg/ Sodium (Chloride) 250 mls @ 250 mls/hr IV Q24H [facility] Last Admin: 12/23/16 22:55 Dose: 250 mls/hr Magnesium Sulfate 2 gm/ Premix 50 mls @ 25 mls/hr IV ONETIME ONE Stop: 12/23/16 10:03 Last Infusion: 12/23/16 12:50 Dose: Infused Ceftriaxone Sodium 1 gm/ (Sodium Chloride) 50 mls @ 100 mls/hr IV Q24H [facility] Last Admin: 12/23/16 21:43 Dose: 100 mls/hr Piperacillin Sod/Tazobactam (Sod 3.375 gm/ Sodium Chloride) 100 mls @ 200 mls/ hr IV Q8H [facility] Last Admin: 12/24/16 12:34 Dose: 200 mls/hr Vancomycin HCl 1.25 gm/ Sodium (Chloride) 250 mls @ 167 mls/hr IV ONETIME ONE Stop: 12/24/16 12:28 Last Admin: 12/24/16 15:00 Dose: 167 mls/hr Sodium Chloride (Normal Saline) 500 mls @ 100 mls/hr IV ASDIRECTED [facility] Sodium Chloride (Normal Saline) 1,000 mls @ 100 mls/hr IV ASDIRECTED [facility] Last Admin: 12/26/16 05:18 Dose: 100 mls/hr Vancomycin HCl 1 gm/ Sodium (Chloride) 250 mls @ 166.667 mls/hr IV Q24H [facility] Last Admin: 12/25/16 13:57 Dose: 166.667 mls/hr Tobramycin 280 mg/ Sodium (Chloride) 107 mls @ 107 mls/hr IV Q48H [facility] Last Admin: 12/24/16 17:29 Dose: Not Given Piperacillin Sod/Tazobactam (Sod 3.375 gm/ Sodium Chloride) 100 mls @ 200 mls/ hr IV Q8H [facility] Meropenem 1 gm/ Sodium (Chloride) 100 mls @ 200 mls/hr IV Q8H [facility] Last Admin: 12/24/16 18:13 Dose: 200 mls/hr Calcium Gluconate 1 gm/ Sodium (Chloride) 110 mls @ 100 mls/hr IV ONETIME ONE Stop: 12/25/16 11:30 Last Admin: 12/25/16 11:51 Dose: 100 mls/hr Methylprednisolone Sodium Succinate (Solu-Medrol) 125 mg IVPUSH ONETIME ONE Stop: 12/22/16 20:07 Last Admin: 12/22/16 20:44 Dose: 125 mg Methylprednisolone Sodium Succinate (Solu-Medrol) 125 mg IVPUSH Q12H [facility] Last Admin: 12/23/16 21:41 Dose: 125 mg Methylprednisolone Sodium Succinate (Solu-Medrol) 125 mg IVPUSH Q12H [facility] Last Admin: 12/24/16 06:51 Dose: 125 mg Omeprazole (Omeprazole) 40 mg PO ACBREAKFAST [facility] Last Admin: 12/23/16 06:29 Dose: 40 mg Potassium Chloride (Klor-Con 10) 40 meq PO ONETIME ONE Stop: 12/23/16 08:05 Last Admin: 12/23/16 10:04 Dose: 40 meq Potassium Chloride (Klor-Con 10) 20 meq PO ONETIME ONE Stop: 12/23/16 12:00 Last Admin: 12/23/16 13:06 Dose: 20 meq Potassium Chloride (Klor-Con 10) 20 meq PO ONETIME ONE Stop: 12/25/16 10:17 Last Admin: 12/25/16 11:01 Dose: 20 meq Tobramycin (Pharmacy To Dose - Tobramycin) 1 dose .XX ASDIRECTED [facility] - Exam General: alert, oriented, cooperative, no acute distress, other (she looks better). No: moderate distress, severe distress, sedated, lethargic, obtunded HEENT: Pupils equal, Pupils reactive, EOMI, Mucous membr. moist/pink Neck: supple, trachea midline, no JVD Lungs: Normal respiratory effort, Decreased breath sounds (with fair air exchange), Rhonchi, Wheezing. No: Crackles, Rales, Rub, Stridor Cardiovascular: Regular Rate, Regular Rhythm Abdomen: bowel sounds present, soft, no tenderness, no distension (Female) Exam: Deferred Back Exam: Normal Inspection, Full Range of Motion Extremities: no edema, normal pulses, no tenderness/swelling, no clubbing, no cyanosis, no calf tenderness Skin: warm, dry, intact Neurological: no new focal deficit Psy/Mental Status: alert, normal affect, normal mood - Problem List & Annotations (1) Persistent cough SNOMED Code(s): 849216813 Code(s): R05 - COUGH Status: Acute Current Visit: Yes (2) Chronic sinusitis SNOMED Code(s): 27189470 Code(s): J32.9 - CHRONIC SINUSITIS, UNSPECIFIED Status: Chronic Current Visit: Yes (3) Asthma exacerbation SNOMED Code(s): 355837370 Code(s): J45.901 - UNSPECIFIED ASTHMA WITH (ACUTE) EXACERBATION Status: Acute Priority: High Current Visit: Yes (4) Bronchiectasis SNOMED Code(s): 37837035 Code(s): J47.9 - BRONCHIECTASIS, UNCOMPLICATED Status: Chronic Current Visit: Yes (5) Essential hypertension SNOMED Code(s): 12404928 Code(s): I10 - ESSENTIAL (PRIMARY) HYPERTENSION Status: Chronic Current Visit: Yes (6) Multiple sclerosis SNOMED Code(s): 73817019 Code(s): G35 - MULTIPLE SCLEROSIS Status: Chronic Current Visit: Yes (7) GERD (gastroesophageal reflux disease) SNOMED Code(s): 417346470 Code(s): K21.9 - GASTRO-ESOPHAGEAL REFLUX DISEASE WITHOUT ESOPHAGITIS Status: Chronic Current Visit: Yes (8) Gastroesophageal reflux disease SNOMED Code(s): 194148281 Code(s): K21.9 - GASTRO-ESOPHAGEAL REFLUX DISEASE WITHOUT ESOPHAGITIS Status: Chronic Current Visit: No (9) Acute sinusitis SNOMED Code(s): 72047362 Code(s): J01.90 - ACUTE SINUSITIS, UNSPECIFIED Status: Acute Current Visit: Yes (10) Hypokalemia SNOMED Code(s): 67416644 Code(s): E87.6 - HYPOKALEMIA Status: Acute Current Visit: Yes (11) Hypocalcemia SNOMED Code(s): 5944242 Code(s): E83.51 - HYPOCALCEMIA Status: Acute Current Visit: Yes - Problem List Review Problem List Initiated/Reviewed/Updated: Yes - My Orders Last 24 Hours: My Active Orders 12/26/16 14:00 Vancomycin 1 gm Sodium Chloride 0.9% [Normal Saline] 250 ml IV Q24H - Plan Plan:: Possible sepsis WBC increased From 7.7 to 20,000 despite being on IV antibiotic. Part of it could be related to IV steroids lactic acid increased to 3.1 Compared to -today WBC and lactic acid dropped to normal -awaiting repeated blood cultures results -Initial blood cultures are still negative sputum culture showed Klebsiella which is sensitive on ceftriaxone, doxycycline , ertapenem, imipenem her Rocephin and azithromycin were changed on 12/24/13 to azithromycin, meropenem , and vancomycin -stop IV fluid infusion Pneumonia, possible healthcare associated pneumonia repeated chest x-ray on 12/24 shows questionable infiltrate in the right lower lobe -awaiting repeated blood cultures results -Initial blood cultures are still negative sputum culture showed Klebsiella which is sensitive on ceftriaxone, doxycycline , ertapenem, imipenem her Rocephin and azithromycin were changed on 12/24/13 to azithromycin, meropenem , and vancomy Acute on chronic sinusitis Despite being on IV antibiotic with Rocephin and azithromycin patient developed fever In addition to increasing in her sinus symptoms her Rocephin and azithromycin were changed on 12/24/13 to azithromycin, meropenem , and vancomycin saline nasal spray asthma exacerbation with possible bronchitis, failed outpatient treatment Duoneb every 6 hours Budesonide b.i.d. started Methylprednisone 125 mg b.i.d. on admission then changed to oral prednisone 40 mg daily on 12/24/16 Persistent productive cough Robitussin/codeine, Tessalon, Cepacol p.r.n. Chronic Bronchiectasis Resume home medications in addition to the above treatment Incentives spirometer and flutter Hypomagnesemia Replaced by IV Hypokalemia Replace orally Hypocalcemia One dose of calcium gluconate 1g IV is given GERD Continue PPI Essential hypertension Continue amlodipine Multiple sclerosis Not active Hyperlipidemia, chronic Continue statin Lovenox for DVT prophylaxis Patient wants to be full code
--- NOTE | 2016-12-26 11:23 | CR ---
Addendum report: PA lateral chest film 24 Dec 2016 reviewed with hospitalist (Dr. Kline) and Jesu jo oncur that although the patient has made a very poor inspiratory effort there does now appear to be a new pneumonic like consolidation (infiltrate and/or atelectasis) behind the heart in the right chrissy g base when compared to recent 22 Dec 2016 exam. 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 No signs of heart failure, lung mass or other focal lobar consolidation.
[2016-12-26] MEDS: Cyanocobalamin (Vitamin B12) 100 MCG Tab PO SCH (11:26)
[2016-12-26] MEDS: Sodium Chloride 0.9% 10 ML Syringe FLUSH PRN ×2 (17:51→22:48)
[2016-12-26] MEDS: amLODIPine 5 MG Tab PO SCH (20:16)
[2016-12-26] MEDS: Azithromycin 500 MG in Sodium Chloride 0.9% 250 ML IV SCH (22:49)
[2016-12-27] MEDS: Sodium Chloride 0.9% 10 ML Syringe FLUSH PRN ×2 (00:43→05:28)
[2016-12-27] MEDS: Albuterol/Ipratropium 3.0-0.5 MG/3 ML Neb Soln NEB SCH ×3 (01:26→13:43)
[2016-12-27] MEDS: Meropenem 1 GM in Sodium Chloride 0.9% 100 ML IV SCH (05:28)
[2016-12-27] MEDS: NEXIUM 40 MG PO SCH (05:29)
[2016-12-27 07:01] LABS: CHLORIDE,CL 103 mmol/L (101-111); SODIUM,NA 137 mmol/L (135-145)
[2016-12-27] MEDS: predniSONE 20 MG Tab PO SCH (08:47)
[2016-12-27] MEDS: Cholecalciferol (Vitamin D3) 400 Unit Tab PO SCH (08:48)
[2016-12-27] MEDS: Tamoxifen 10 MG Tab PO SCH (08:48)
[2016-12-27] MEDS: Enoxaparin 40 MG/0.4 ML Syringe SUBCUT SCH (08:51)
[2016-12-27] MEDS ORDERED: Potassium Chloride 10 MEQ Tab.ER PO ONE (09:30)
[2016-12-27] MEDS: Ascorbic Acid 500 MG Tab PO SCH (10:08)
[2016-12-27] MEDS: Cyanocobalamin (Vitamin B12) 100 MCG Tab PO SCH (10:10)
[2016-12-27 11:43] VITALS: BP 125/64
--- NOTE | 2016-12-27 12:23 | PCM.DCSUM1 ---
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 Patient stated that she has chronic sinusitis which was acting up for the last one week prior to admission and was having green nasal drainage, postnasal drip, scratchy throat and yesterday her chronic cough got out of control and she started having shortness of breath with exertion. She reported feeling warm and cold the day prior to admission and at the morning often admission her temperature was 100 Fahrenheit. She went to clinic and was prescribed antibiotic and steroid the patient was getting worse so she came to the emergency room. chest x-ray did not show consolidation or acute infiltrates. On exam she was having persistent uncontrolled cough but did not seem to be in severe respiratory distress. on admission her WBC 8.7. hemoglobin 13.2. Sodium 132. Potassium 3.6. Lactic acid 1.7. Creatinine 0.6. CRP 0.6. in the emergency room she received Duoneb and albuterol nebulizers, Methylprednisone 125 mg IV and was admitted to the hospital. Patient initially was getting better and today 's later she did love low-grade fever again and was having lot of sinus symptoms so antibiotics were changed. her sputum culture showed Klebsiella that sensitive to the IV antibiotic she was receiving and to the doxycycline that she is going home on. today she states that her cough is much better, her sinus symptoms but improved, she is not short of breath and she denied chills, nausea , vomiting, chest pain, abdominal pain, unilateral weakness/numbness, swelling of the legs. Plan of care and during hospitalization: Possible sepsis WBC increased From 7.7 to 20,000 despite being on IV antibiotic. Part of it could be related to IV steroids lactic acid increased to 3.1 Compared to WBC and lactic acid dropped to normal initial and repeated blood cultures show no growth for 4 and 3 days respectively sputum culture showed Klebsiella which is sensitive on ceftriaxone, doxycycline , ertapenem, imipenem her Rocephin and azithromycin were changed on 12/24/13 to azithromycin, meropenem , and vancomycin Pneumonia, possible healthcare associated pneumonia repeated chest x-ray on 12/24 shows questionable infiltrate in the right lower lobe sputum culture showed Klebsiella which is sensitive on ceftriaxone, doxycycline , ertapenem, imipenem her Rocephin and azithromycin were changed on 12/24/13 to azithromycin, meropenem , and vancomy Acute on chronic sinusitis Despite being on IV antibiotic with Rocephin and azithromycin patient developed fever In addition to increasing in her sinus symptoms her Rocephin and azithromycin were changed on 12/24/13 to azithromycin, meropenem , and vancomycin saline nasal spray asthma exacerbation with possible bronchitis, failed outpatient treatment Duoneb every 6 hours Budesonide b.i.d. started Methylprednisone 125 mg b.i.d. on admission then changed to oral prednisone 40 mg daily on 12/24/16 Persistent productive cough Robitussin/codeine, Tessalon, Cepacol p.r.n. Chronic Bronchiectasis Resume home medications in addition to the above treatment Incentives spirometer and flutter Hypomagnesemia Replaced by IV Hypokalemia Replace orally Hypocalcemia One dose of calcium gluconate 1g IV is given GERD Continue PPI Essential hypertension Continue amlodipine Multiple sclerosis Not active Hyperlipidemia, chronic Continue statin Lovenox for DVT prophylaxis Patient wants to be full code - Discharge Data Discharge Date: 12/27/16 Discharge Disposition: Home, Self-Care 01 Condition: Good - Discharge Diagnosis/Problem(s) (1) Persistent cough SNOMED Code(s): 426289049 ICD Code: R05 - COUGH Status: Acute Current Visit: Yes (2) Chronic sinusitis SNOMED Code(s): 39567713 ICD Code: J32.9 - CHRONIC SINUSITIS, UNSPECIFIED Status: Chronic Current Visit: Yes (3) Asthma exacerbation SNOMED Code(s): 857980216 ICD Code: J45.901 - UNSPECIFIED ASTHMA WITH (ACUTE) EXACERBATION Status: Acute Priority: High Current Visit: Yes (4) Bronchiectasis SNOMED Code(s): 50922287 ICD Code: J47.9 - BRONCHIECTASIS, UNCOMPLICATED Status: Chronic Current Visit: Yes (5) Essential hypertension SNOMED Code(s): 62882913 ICD Code: I10 - ESSENTIAL (PRIMARY) HYPERTENSION Status: Chronic Current Visit: Yes (6) Multiple sclerosis SNOMED Code(s): 81733901 ICD Code: G35 - MULTIPLE SCLEROSIS Status: Chronic Current Visit: Yes (7) GERD (gastroesophageal reflux disease) SNOMED Code(s): 764644998 ICD Code: K21.9 - GASTRO-ESOPHAGEAL REFLUX DISEASE WITHOUT ESOPHAGITIS Status: Chronic Current Visit: Yes (8) Gastroesophageal reflux disease SNOMED Code(s): 378333781 ICD Code: K21.9 - GASTRO-ESOPHAGEAL REFLUX DISEASE WITHOUT ESOPHAGITIS Status: Chronic Current Visit: No (9) Acute sinusitis SNOMED Code(s): 00045314 ICD Code: J01.90 - ACUTE SINUSITIS, UNSPECIFIED Status: Acute Current Visit: Yes (10) Hypokalemia SNOMED Code(s): 19194420 ICD Code: E87.6 - HYPOKALEMIA Status: Acute Current Visit: Yes (11) Hypocalcemia SNOMED Code(s): 1011627 ICD Code: E83.51 - HYPOCALCEMIA Status: Acute Current Visit: Yes - Patient Instructions Diet: Heart Healthy Diet Activity: As Tolerated Showering/Bathing: May Shower Notify Provider of: Fever - Discharge Plan Prescriptions/Med Rec: Doxycycline [Vibramycin] 100 mg PO Q12HR #20 cap Benzonatate [Tessalon Perles] 100 mg PO QID PRN #30 cap PRN Reason: Cough Home Medications: Home Meds Alendronate [Fosamax] 70 mg PO Q7D@0600 02/01/15 [History] Esomeprazole [NexIUM] 40 mg PO DAILY 02/01/15 [History] amLODIPine [Norvasc] 10 mg PO BEDTIME 02/01/15 [History] Ascorbic Acid [Vitamin C] 500 mg PO DAILY 12/05/15 [History] Cholecalciferol (Vitamin D3) [Vitamin D3] 1,000 units PO DAILY 12/05/15 [History ] Cyanocobalamin (Vitamin B-12) [Vitamin B-12] 1,000 mcg PO DAILY 12/05/15 [ History] Tamoxifen [Nolvadex] 20 mg PO DAILY 12/05/15 [History] Albuterol [Proventil HFA] 2 puff INH Q4HR PRN 04/26/16 [History] Budesonide [Pulmicort] 2 ml NEB BID PRN 04/26/16 [History] guaiFENesin [Mucinex] 600 mg PO BID 04/26/16 [History] Amoxicillin/Potassium Clav [Augmentin 875-125 Tablet] 1 each PO BID 12/22/16 [ History] methylPREDNISolone [Methylprednisolone] 4 mg PO ASDIRECTED 12/22/16 [History] Albuterol/Ipratropium [DuoNeb 3.0-0.5 MG/3 ML] 3 ml NEB Q4HRRT PRN #0 12/27/16 [Rx] Benzonatate [Tessalon Perles] 100 mg PO QID PRN #30 cap 12/27/16 [Rx] Doxycycline [Vibramycin] 100 mg PO Q12HR #20 cap 12/27/16 [Rx] Patient Handouts: Asthma, Adult, Cough, Adult, [id number], Sinusitis, Adult, [id number] Referrals: PCP,Unobtain [Ordering Only Provider] - - Discharge Summary/Plan Comment DC Time >30 min.: Yes (35 minutes were spent discharging the patient) - General Info Date of Service: 12/27/16 Admission Dx/Problem (Free Text: Admission Diagnosis/Problem Admission Diagnosis/Problem Asthmatic bronchitis - Patient Data Vitals - Most Recent: Last Vital Signs Temp 36.7 C 12/27/16 11:00 Pulse 88 12/27/16 11:00 Resp 20 12/27/16 11:00 BP 125/64 12/27/16 11:00 Pulse Ox 96 12/27/16 11:00 Weight - Most Recent: 65.487 kg I&O - Last 24 hours: Intake & Output 12/26/16 12/27/16 12/27/16 22:59 06:59 14:59 Intake Total 1788 1418 Output Total 1300 3650 Balance 488 -2232 Lab Results - Last 24 hrs: Laboratory Results - last 24 hr 12/27/16 12/27/16 Range/Units 06:04 06:04 WBC 6.6 (5.0-10.0) 10^3/uL RBC 4.05 L (4.2-5.4) 10^6/uL Hgb 11.8 L (12.0-16.0) g/dL Hct 35.4 L (37.0-47.0) % MCV 87.4 (80-100) fL MCH 29.1 (27.0-34.0) pg MCHC 33.3 (33.0-35.0) g/dL Plt Count 202 (150-450) 10^3/uL Neut % (Auto) 62.6 (42.2-75.2) % Lymph % (Auto) 24.4 (20.5-50.1) % Cook % (Auto) 10.6 H (2-8) % Eos % (Auto) 2.4 (1.0-3.0) % Baso % (Auto) 0.0 (0.0-1.0) % Sodium 137 (135-145) mmol/L Potassium 3.3 L (3.6-5.0) mmol/L Chloride 103 (101-111) mmol/L Carbon Dioxide 30.0 (21.0-31.0) mmol/L Anion Gap 7.3 BUN 9 (7-18) mg/dL Creatinine 0.6 (0.6-1.3) mg/dL Est Cr Clr Drug Dosing 63.95 mL/min Estimated GFR (MDRD) > 60 Glucose 94 (74-105) mg/dL Calcium 8.3 L (8.4-10.2) mg/dl MYRA Results - Last 24 hrs: Microbiology 12/24/16 11:35 Aerobic Blood Culture - Preliminary Blood - Venous - Lab Draw NO GROWTH AFTER 3 DAYS Anaerobic Blood Culture - Final 12/24/16 11:20 Aerobic Blood Culture - Preliminary Blood - Venous NO GROWTH AFTER 3 DAYS Anaerobic Blood Culture - Preliminary NO GROWTH AFTER 3 DAYS 12/24/16 13:50 Gram Stain - Final Sputum - Induced Sputum Culture - Final Klebsiella Pneumoniae Med Orders - Current: Current Medications Acetaminophen (Tylenol) 650 mg PO Q4H PRN PRN Reason: Pain (Mild 1-3)/fever Last Admin: 12/24/16 08:50 Dose: 650 mg Albuterol (Proventil Neb Soln) 2.5 mg NEB Q2H PRN PRN Reason: shortness of breath/wheezing Last Admin: 12/25/16 14:34 Dose: 2.5 mg Albuterol/Ipratropium (Duoneb 3.0-0.5 Mg/3 Ml) 3 ml NEB Q6HRRT LUIS Last Admin: 12/27/16 07:17 Dose: 3 ml Amlodipine Besylate (Norvasc) 10 mg PO BEDTIME LUIS Last Admin: 12/26/16 20:16 Dose: 10 mg Ascorbic Acid (Vitamin C) 500 mg PO DAILY LUIS Last Admin: 12/27/16 10:08 Dose: 500 mg Benzocaine/Menthol (Cepacol Sore Throat) 1 lozenge MUCMEM Q4H PRN PRN Reason: cough, dry throat Last Admin: 12/25/16 09:26 Dose: 1 lozenge Benzonatate (Tessalon Perles) 100 mg PO QID PRN PRN Reason: cough, dry throat Last Admin: 12/26/16 13:24 Dose: 100 mg Budesonide (Pulmicort) 0.5 mg NEB BIDRT PRN PRN Reason: Shortness of Breath Cholecalciferol (Vitamin D3) 1,000 units PO DAILY [facility] Last Admin: 12/27/16 08:48 Dose: 1,000 units Cyanocobalamin (Vitamin B12) 1,000 mcg PO DAILY [facility] Last Admin: 12/27/16 10:10 Dose: Not Given Enoxaparin Sodium (Lovenox) 40 mg SUBCUT DAILY [facility] Last Admin: 12/27/16 08:51 Dose: 40 mg Guaifenesin/Codeine Phosphate (Robitussin Ac) 10 ml PO Q4H PRN PRN Reason: Cough Last Admin: 12/26/16 23:00 Dose: 10 ml Azithromycin 500 mg/ Sodium (Chloride) 250 mls @ 250 mls/hr IV Q24H [facility] Last Admin: 12/26/16 22:49 Dose: 250 mls/hr Meropenem 1 gm/ Sodium (Chloride) 100 mls @ 200 mls/hr IV Q12H [facility] Last Admin: 12/27/16 05:28 Dose: 200 mls/hr Vancomycin HCl 1 gm/ Sodium (Chloride) 250 mls @ 166.667 mls/hr IV Q24H [facility] Last Admin: 12/26/16 13:23 Dose: 166.667 mls/hr Morphine Sulfate (Morphine) 2 mg IVPUSH Q2H PRN PRN Reason: Pain (severe 7-10) Ondansetron HCl (Zofran) 4 mg IVPUSH Q6H PRN PRN Reason: Nausea/Vomiting Alendronate [Fosamax ] 70 MgPt's Own Med 0 each PO Q7D@0600 [facility] Last Admin: 12/26/16 05:38 Dose: 1 each Patient's Own Medication 1 Each Nexium 40 Mg 1 each PO ACBREAKFAST [facility] Last Admin: 12/27/16 05:29 Dose: 1 each Polyethylene Glycol (Miralax) 17 gm PO DAILY PRN PRN Reason: Constipation Prednisone (Prednisone) 40 mg PO WITHBREAKFAST [facility] Last Admin: 12/27/16 08:47 Dose: 40 mg Sodium Chloride ([place] Nasal [place]) 0 ml AMMY Q2H PRN PRN Reason: Congestion Sodium Chloride (Saline Flush) 10 ml FLUSH ASDIRECTED PRN PRN Reason: Keep Vein Open Last Admin: 12/27/16 05:28 Dose: 10 ml Tamoxifen Citrate (Nolvadex) 20 mg PO DAILY [facility] Last Admin: 12/27/16 08:48 Dose: 20 mg Vancomycin HCl (Pharmacy To Dose - Vancomycin) 1 dose .XX ASDIRECTED [facility] Zolpidem Tartrate (Ambien) 5 mg PO BEDTIME PRN PRN Reason: Sleep Discontinued Medications Albuterol (Proventil Neb Soln) 2.5 mg NEB ONETIME ONE Stop: 12/22/16 21:11 Last Admin: 12/22/16 21:12 Dose: 2.5 mg Albuterol (Proventil Neb Soln) Confirm Administered Dose 2.5 mg .ROUTE .STK-MED ONE Stop: 12/22/16 21:12 Last Admin: 12/22/16 22:13 Dose: Not Given Albuterol/Ipratropium (Duoneb 3.0-0.5 Mg/3 Ml) 3 ml NEB ONETIME ONE Stop: 12/22/16 19:55 Last Admin: 12/22/16 20:00 Dose: 3 ml Albuterol/Ipratropium (Duoneb 3.0-0.5 Mg/3 Ml) 3 ml NEB Q4HRRT [facility] Last Admin: 12/23/16 07:28 Dose: 3 ml Furosemide (Lasix) 40 mg PO ONETIME ONE Stop: 12/24/16 11:02 Last Admin: 12/24/16 12:35 Dose: 40 mg Guaifenesin/Codeine Phosphate (Robitussin Ac) 5 ml PO ONETIME ONE Stop: 12/22/16 21:11 Last Admin: 12/22/16 21:13 Dose: 5 ml Azithromycin 500 mg/ Sodium (Chloride) 250 mls @ 250 mls/hr IV Q24H [facility] Last Admin: 12/23/16 00:38 Dose: Not Given Sodium Chloride (Normal Saline) 1,000 mls @ 125 mls/hr IV ASDIRECTED [facility] Last Admin: 12/22/16 23:10 Dose: 125 mls/hr Ceftriaxone Sodium 1 gm/ (Sodium Chloride) 50 mls @ 100 mls/hr IV Q24H [facility] Last Admin: 12/22/16 23:10 Dose: 100 mls/hr Azithromycin 500 mg/ Sodium (Chloride) 250 mls @ 250 mls/hr IV Q24H [facility] Last Admin: 12/23/16 22:55 Dose: 250 mls/hr Magnesium Sulfate 2 gm/ Premix 50 mls @ 25 mls/hr IV ONETIME ONE Stop: 12/23/16 10:03 Last Infusion: 12/23/16 12:50 Dose: Infused Ceftriaxone Sodium 1 gm/ (Sodium Chloride) 50 mls @ 100 mls/hr IV Q24H [facility] Last Admin: 12/23/16 21:43 Dose: 100 mls/hr Piperacillin Sod/Tazobactam (Sod 3.375 gm/ Sodium Chloride) 100 mls @ 200 mls/ hr IV Q8H [facility] Last Admin: 12/24/16 12:34 Dose: 200 mls/hr Vancomycin HCl 1.25 gm/ Sodium (Chloride) 250 mls @ 167 mls/hr IV ONETIME ONE Stop: 12/24/16 12:28 Last Admin: 12/24/16 15:00 Dose: 167 mls/hr Sodium Chloride (Normal Saline) 500 mls @ 100 mls/hr IV ASDIRECTED [facility] Sodium Chloride (Normal Saline) 1,000 mls @ 100 mls/hr IV ASDIRECTED [facility] Last Admin: 12/26/16 05:18 Dose: 100 mls/hr Vancomycin HCl 1 gm/ Sodium (Chloride) 250 mls @ 166.667 mls/hr IV Q24H [facility] Last Admin: 12/25/16 13:57 Dose: 166.667 mls/hr Tobramycin 280 mg/ Sodium (Chloride) 107 mls @ 107 mls/hr IV Q48H [facility] Last Admin: 12/24/16 17:29 Dose: Not Given Piperacillin Sod/Tazobactam (Sod 3.375 gm/ Sodium Chloride) 100 mls @ 200 mls/ hr IV Q8H [facility] Meropenem 1 gm/ Sodium (Chloride) 100 mls @ 200 mls/hr IV Q8H [facility] Last Admin: 12/24/16 18:13 Dose: 200 mls/hr Calcium Gluconate 1 gm/ Sodium (Chloride) 110 mls @ 100 mls/hr IV ONETIME ONE Stop: 12/25/16 11:30 Last Admin: 12/25/16 11:51 Dose: 100 mls/hr Methylprednisolone Sodium Succinate (Solu-Medrol) 125 mg IVPUSH ONETIME ONE Stop: 12/22/16 20:07 Last Admin: 12/22/16 20:44 Dose: 125 mg Methylprednisolone Sodium Succinate (Solu-Medrol) 125 mg IVPUSH Q12H [facility] Last Admin: 12/23/16 21:41 Dose: 125 mg Methylprednisolone Sodium Succinate (Solu-Medrol) 125 mg IVPUSH Q12H [facility] Last Admin: 12/24/16 06:51 Dose: 125 mg Omeprazole (Omeprazole) 40 mg PO ACBREAKFAST [facility] Last Admin: 12/23/16 06:29 Dose: 40 mg Potassium Chloride (Klor-Con 10) 40 meq PO ONETIME ONE Stop: 12/23/16 08:05 Last Admin: 12/23/16 10:04 Dose: 40 meq Potassium Chloride (Klor-Con 10) 20 meq PO ONETIME ONE Stop: 12/23/16 12:00 Last Admin: 12/23/16 13:06 Dose: 20 meq Potassium Chloride (Klor-Con 10) 20 meq PO ONETIME ONE Stop: 12/25/16 10:17 Last Admin: 12/25/16 11:01 Dose: 20 meq Potassium Chloride (Klor-Con 10) 40 meq PO ONETIME ONE Stop: 12/27/16 09:31 Last Admin: 12/27/16 10:07 Dose: 40 meq Tobramycin (Pharmacy To Dose - Tobramycin) 1 dose .XX ASDIRECTED LUIS - Exam General: Reports: alert, oriented, cooperative, no acute distress. Denies: mild distress, moderate distress, severe distress, sedated, lethargic, obtunded HEENT: Reports: Pupils equal, Pupils reactive, EOMI, Mucous membr. moist/pink Neck: Reports: supple, trachea midline, no JVD Lungs: Reports: Decreased breath sounds (but fair air exchange, improved from yesterday). Denies: Rales, Rhonchi, Rub, Stridor, Wheezing Cardiovascular: Reports: Regular Rate, Regular Rhythm Abdomen: Reports: bowel sounds present, soft, no tenderness, no distension (Female) Exam: Deferred Rectal (Female) Exam: Deferred Back Exam: Reports: Normal Inspection, Full Range of Motion Extremities: Reports: no edema, normal pulses, no tenderness/swelling, no clubbing, no cyanosis, no calf tenderness Skin: Reports: warm, dry, intact Neurological: Reports: no new focal deficit Psy/Mental Status: Reports: alert, normal affect, normal mood *Q Meaningful Use (DIS) - VTE *Q VTE Criteria *Q: - Stroke *Q Stroke Criteria *Q: - AMI *Q AMI Criteria *Q:
[2016-12-27] MEDS: Benzocaine/Cetylpyridinium/Menthol Lozenge MUCMEM PRN (13:35)
[2016-12-27] MEDS: Benzonatate 100 MG Cap PO PRN (13:35)
== END 2016-12-27 14:00 | disposition home or self-care (01) | DRG 871 ==
LOC: DL.ED 17:36 → DL.MS 22:10 → UNDOADMIN 22:10 → DL.MS 22:25
PROVIDERS: ADMIT Family Medicine; ATTEND Family Medicine
DX: J45.902 Unspecified asthma with status asthmaticus (principal); J06.9 Acute upper respiratory infection, unspecified; E87.1 Hypo-osmolality and hyponatremia; A41.9 Sepsis, unspecified organism; J18.9 Pneumonia, unspecified organism; J45.901 Unspecified asthma with (acute) exacerbation; J47.0 Bronchiectasis with acute lower respiratory infection; J01.90 Acute sinusitis, unspecified; E83.42 Hypomagnesemia; E87.6 Hypokalemia; E83.51 Hypocalcemia; K21.9 Gastro-esophageal reflux disease without esophagitis; I10 Essential (primary) hypertension; G35 Multiple sclerosis; E78.5 Hyperlipidemia, unspecified; R06.02 Shortness of breath
CPT/HCPCS: 36415; 71020; 80053; 83605; 83880; 85025; 86140; 87040; 96374; 99284; 99285; A9270; J2930; J7620; 80048; 83735; 84100; 87070; 87077; 87186; 87205; 94010; 94640; 94667; J0456; J0610; J0696; J1650; J2185; J2543; J3370; J3475; J7030; J7050

== ENCOUNTER 2017-08-01 14:37 | Emergency (ER) | payer MEDICARE, OTHER ==
[2017-08-01] MEDS ORDERED: Aspirin 81 MG Tab.Chew PO ONE (14:38)
[2017-08-01 15:50] LABS: CHLORIDE,CL 102 mmol/L (101-111); SODIUM,NA 135 mmol/L (135-145)
--- NOTE | 2017-08-01 18:21 | CR ---
Clinical history: 71-year-old female with chest pain and arm numbness. Interpretation: Hiatus hernia incarcerated in the lower middle mediastinum. Osteoporosis and kyphoscoliosis of the spine. Senescent ectasia thoracic aorta. Normal cardiac silhouette without cephalization of vascular flow, signs of alveolar edema or dependen t effusion. No new lung mass, hilar lymphadenopathy or focal lobar pneumonia when compared to 24 Dec 2016 exam. No atelectasis/collapse. No pneumothorax.
--- NOTE | 2017-08-03 16:24 | EKG ---
08/01/2017 - DARLINE FERRARA - FINDINGS: I reviewed the EKG and agree with the machine's reading. [facility] /[id number]
== END 2017-08-01 16:12 ==
LOC: DL.ED 14:37
DX: R07.89 Other chest pain (principal); K21.9 Gastro-esophageal reflux disease without esophagitis; Z85.3 Personal history of malignant neoplasm of breast
CPT/HCPCS: 36415; 71010; 80053; 82150; 83690; 84484; 85025; 93005; 93010; 99283; 99285; A9270-GY

== ENCOUNTER 2017-09-06 01:10 | Emergency (ER) | payer MEDICARE, OTHER ==
[2017-09-06 01:56] LABS: ANION GAP 11.3; CHLORIDE,CL 100 mmol/L (101-111); SODIUM,NA 132 mmol/L (135-145)
--- NOTE | 2017-09-06 14:32 | EKG ---
09/06/2017 - DARLINE FERRARA PÉREZ - TIME: 1:13 a.m. FINDINGS: EKG shows normal sinus rhythm. Borderline nonspecific T-wave abnormalities. [facility] /[id number]
--- NOTE | 2017-09-06 14:32 | EKG ---
09/06/2017 - ALEMDARLINE - TIME: 6:20 a.m. FINDINGS: EKG shows a normal sinus rhythm. Nonspecific T-wave abnormalities. [facility] /[id number]
== END 2017-09-06 07:03 ==
LOC: DL.ED 01:10
DX: R07.9 Chest pain, unspecified (principal)
CPT/HCPCS: 36415; 71045; 80053; 81001; 82150; 82553; 83690; 84484; 85025; 99283; 99285

== ENCOUNTER 2018-01-01 11:38 | Emergency (ER) | payer MEDICARE, OTHER ==
[2018-01-01] MEDS ORDERED: Sodium Chloride 0.9% 1,000 ML IV ONE (11:39)
[2018-01-01] MEDS ORDERED: methylPREDNISolone Sodium Succinate 125 MG/2 ML SDV IVPUSH ONE (11:39)
[2018-01-01] MEDS ORDERED: Albuterol/Ipratropium 3.0-0.5 MG/3 ML Neb Soln NEB ONE (11:39)
[2018-01-01] MEDS ORDERED: Sodium Chloride 0.9% 10 ML Syringe FLUSH PRN (11:40)
--- NOTE | 2018-01-01 11:50 | EDM.PDOC ---
ED HPI GENERAL MEDICAL PROBLEM - General Chief Complaint: Respiratory Problem Stated Complaint: [id number] ASTHMA ATTACK Time Seen by Provider: 01/01/18 11:40 Source of Information: Reports: Patient, Family, RN, RN Notes Reviewed History Limitations: Reports: Respiratory Distress - History of Present Illness INITIAL COMMENTS - FREE TEXT/NARRATIVE: Pt presents to the ER per POV into the ambulance garage. with ongoing asthma attack. Patient is in severe respiratory distress upon arrival and is unable to answer question. Once, resolved, patient states she has a history of bronchiectasis and asthma. She is unsure of the trigger, but states she had been outside and had just come inside to make dinner when the attack began, which was just prior to arrival. Onset: Today, Sudden Head Pain Score (Numeric/FACES): 3 - Related Data Allergies Allergy/AdvReac Type Severity Reaction Status Date / Time levofloxacin [From Levaquin] Allergy Hypertensio Verified 08/01/17 15:47 n phenytoin sodium Allergy Rash Verified 08/01/17 15:47 [From Dilantin] phenytoin sodium extended Allergy Rash Verified 08/01/17 15:47 [From Dilantin] Home Meds: Home Meds Alendronate [Fosamax] 70 mg PO Q7D@0600 02/01/15 [History] Esomeprazole [NexIUM] 40 mg PO DAILY 02/01/15 [History] amLODIPine [Norvasc] 10 mg PO BEDTIME 02/01/15 [History] Cholecalciferol (Vitamin D3) [Vitamin D3] 1,000 units PO DAILY 12/05/15 [History ] Cyanocobalamin (Vitamin B-12) [Vitamin B-12] 1,000 mcg PO DAILY 12/05/15 [ History] Tamoxifen [Nolvadex] 20 mg PO DAILY 12/05/15 [History] Albuterol [Proventil HFA] 2 puff INH Q4HR PRN 04/26/16 [History] Budesonide [Pulmicort] 2 ml NEB BID PRN 04/26/16 [History] Albuterol/Ipratropium [DuoNeb 3.0-0.5 MG/3 ML] 3 ml NEB Q4HRRT #30 neb 12/27/16 [Rx] Benzonatate [Tessalon Perles] 100 mg PO QID PRN #30 cap 12/27/16 [Rx] Past Medical History HEENT History: Reports: Cataract, Impaired Vision, Sinusitis Cardiovascular History: Reports: Hypertension Respiratory History: Reports: Asthma Gastrointestinal History: Reports: Hiatal Hernia Genitourinary History: Reports: Retention, Urinary, Urinary Incontinence, UTI, Recurrent Other Genitourinary History: stress incontinence at times, urinaty retention, set up to see urologist [employer] History: Reports: None Musculoskeletal History: Reports: Neck Pain, Chronic, Osteoporosis, Other (See Below) Other Musculoskeletal History: scoliosis Neurological History: Reports: MS, Neuropathy, Peripheral Psychiatric History: Reports: None Endocrine/Metabolic History: Reports: None Hematologic History: Reports: None Immunologic History: Reports: None Oncologic (Cancer) History: Reports: Breast Dermatologic History: Reports: None - Infectious Disease History Infectious Disease History: Reports: Measles, Mumps - Past Surgical History Head Surgeries/Procedures: Reports: None HEENT Surgical History: Reports: Cataract Surgery, Tonsillectomy Other HEENT Surgeries/Procedures: cleft palate at , sinus surgery, cyst removed from neck Cardiovascular Surgical History: Reports: None Respiratory Surgical History: Reports: None Other Respiratory Surgeries/Procedures: senstive to smoke and perfumes GI Surgical History: Reports: Appendectomy Female Surgical History: Reports: Breast Biopsy, Cystectomy, Hysterectomy Other Musculoskeletal Surgeries/Procedures:: breast cyst removed Oncologic Surgical History: Reports: Biopsy of Breast, Lumpectomy Social & Family History - Family History Family Medical History: Noncontributory Cardiac: Reports: [place] Other Cardiac Family History: mother father, and 2 sisters have pasted away from [employer] Respiratory: Reports: Asthma Psychiatric: Reports: Anxiety Other Psychiatric Family History: mother - Caffeine Use Caffeine Use: Reports: Coffee ED ROS GENERAL - Review of Systems Review Of Systems: ROS reveals no pertinent complaints other than HPI. ED EXAM, GENERAL - Physical Exam Exam: See Below Exam Limited By: Respiratory Distress General Appearance: Alert, WD/WN, Severe Distress Eye Exam: Bilateral Eye: EOMI, Normal Inspection Ears: Normal External Exam, Hearing Grossly Normal Nose: Normal Inspection Throat/Mouth: Normal Inspection, Normal Lips, Normal Teeth, Normal Gums, Other ( respiratory distress) Head: Atraumatic, Normocephalic Neck: Normal Inspection, Supple, Non-Tender, Full Range of Motion Respiratory/Chest: Respiratory Distress, Decreased Breath Sounds, Wheezing Cardiovascular: Normal Peripheral Pulses, Regular Rate, Rhythm, No Edema, No Gallop, No JVD, No Murmur, No Rub Peripheral Pulses: 2+: Radial (L), Radial (R) GI/Abdominal: Normal Bowel Sounds, Soft, Non-Tender (Female) Exam: Deferred Rectal (Female) Exam: Deferred Back Exam: Normal Inspection, Full Range of Motion Extremities: Normal Inspection, Normal Range of Motion, Non-Tender, No Pedal Edema, Normal Capillary Refill Neurological: Alert, Oriented, CN II-XII Intact, Normal Cognition, Normal Gait, Normal Reflexes, No Motor/Sensory Deficits Psychiatric: Anxious, Tearful Skin Exam: Warm, Dry, Intact, Normal Color, No Rash Lymphatic: No Adenopathy EKG INTERPRETATION EKG Date: 01/01/18 Time: 11:51 Rhythm: NSR Rate (Beats/Min): 87 [place]: Normal P-Wave: Present QRS: Normal ST-T: Normal QT: Normal Comparison: No Change Course - Vital Signs Last Recorded V/S: Last Vital Signs Temp 98 F 01/01/18 11:39 Pulse 94 01/01/18 11:39 Resp 22 H 01/01/18 11:39 BP 145/79 H 01/01/18 11:39 Pulse Ox 100 01/01/18 11:39 - Orders/Labs/Meds Orders: Active Orders 24 hr Category Date Time Status EKG Documentation Completion [RC] STAT Care 01/01/18 11:40 Active Peripheral IV Care [RC] . DIRECTED Care 01/01/18 11:42 Active RT Aerosol Therapy [RC] ASDIRECTED Care 01/01/18 11:42 Active Peripheral IV Insertion Adult [OM.PC] Stat Oth 01/01/18 11:40 Ordered Labs: Laboratory Tests 01/01/18 01/01/18 Range/Units 11:50 11:50 WBC 6.9 (5.0-10.0) 10^3/uL RBC 4.89 (4.2-5.4) 10^6/uL Hgb 14.2 D (12.0-16.0) g/dL Hct 40.9 (37.0-47.0) % MCV 83.6 (80-100) fL MCH 29.0 (27.0-34.0) pg MCHC 34.7 (33.0-35.0) g/dL Plt Count 243 (150-450) 10^3/uL Neut % (Auto) 65.1 (42.2-75.2) % Lymph % (Auto) 19.5 L (20.5-50.1) % [place] % (Auto) 10.1 H (2-8) % Eos % (Auto) 5.0 H (1.0-3.0) % Baso % (Auto) 0.3 (0.0-1.0) % Sodium 130 L (135-145) mmol/L Potassium 4.2 (3.6-5.0) mmol/L Chloride 97 L (101-111) mmol/L Carbon Dioxide 22.0 (21.0-31.0) mmol/L Anion Gap 15.2 BUN 16 (7-18) mg/dL Creatinine 0.7 (0.6-1.3) mg/dL Est Cr Clr Drug Dosing 54.01 mL/min Estimated GFR (MDRD) > 60 BUN/Creatinine Ratio 22.85 Glucose 96 (74-105) mg/dL Calcium 9.5 (8.4-10.2) mg/dl Magnesium 1.9 (1.8-2.5) mg/dL Total Bilirubin 0.5 (0.2-1.0) mg/dL AST 28 (10-42) IU/L ALT 19 (10-60) IU/L Alkaline Phosphatase 41 L (42-121) IU/L Total Protein 7.3 (6.7-8.2) g/dl Albumin 4.7 (3.2-5.5) g/dl Globulin 2.6 Albumin/Globulin Ratio 1.81 Meds: Medications Discontinued Medications Generic Name Dose Route Start Last Admin Trade Name Freq PRN Reason Stop Dose Admin Acetaminophen 650 mg 01/01/18 12:17 01/01/18 12:27 Tylenol PO 01/01/18 12:18 650 mg NOW ONE Administration Albuterol/Ipratropium 3 ml 01/01/18 11:39 01/01/18 11:39 Duoneb 3.0-0.5 Mg/3 Ml NEB 01/01/18 11:40 3 ml ONETIME ONE Administration Sodium Chloride 1,000 mls @ 175 mls/hr 01/01/18 11:39 01/01/18 12:00 Normal Saline IV 01/01/18 17:21 175 mls/hr .BOLUS ONE Administration Methylprednisolone Sodium Succinate 125 mg 01/01/18 11:39 01/01/18 12:00 Solu-Medrol IVPUSH 01/01/18 11:40 125 mg ONETIME ONE Administration Sodium Chloride 10 ml 01/01/18 11:40 01/01/18 11:48 Saline Flush FLUSH 10 ml ASDIRECTED PRN Administration Keep Vein Open - Radiology Interpretation Free Text/Narrative:: Chest xray: No acute findings See rad report - Re-Assessments/Exams Free Text/Narrative Re-Assessment/Exam: 01/01/18 14:57 Patient reassessed after IV solumedrol and Duoneb given. Respiratory distress resolved, patient able to speak in complete sentences, and not feeling SOB. Wheezing has resolved and air exchange can be heard in all lung martinez. Departure - Departure Time of Disposition: 13:36 Disposition: Home, Self-Care 01 Condition: Fair Clinical Impression: Asthma with status asthmaticus Qualifiers: Asthma severity: severe Asthma persistence: unspecified Qualified Code(s): J45.902 - Unspecified asthma with status asthmaticus - Discharge Information Instructions: Shortness of Breath, Adult, [id number], Asthma, Adult, Easy-to- Read, Asthma Attack Prevention, Adult Referrals: Anabel Dennis MD [Primary Care Provider] - Forms: ED Department Discharge Additional Instructions: Follow up with your primary care facility - My Orders Last 24 Hours: My Active Orders 01/01/18 11:40 EKG Documentation Completion [RC] STAT Peripheral IV Insertion Adult [OM.PC] Stat 01/01/18 11:42 Peripheral IV Care [RC] . DIRECTED RT Aerosol Therapy [RC] ASDIRECTED - Assessment/Plan Last 24 Hours: My Active Orders 01/01/18 11:40 EKG Documentation Completion [RC] STAT Peripheral IV Insertion Adult [OM.PC] Stat 01/01/18 11:42 Peripheral IV Care [RC] . DIRECTED RT Aerosol Therapy [RC] ASDIRECTED
[2018-01-01 12:15] VITALS: BP 145/79
[2018-01-01] MEDS ORDERED: Acetaminophen 325 MG Tab PO ONE (12:17)
[2018-01-01 12:20] LABS: CHLORIDE,CL 97 mmol/L (101-111); SODIUM,NA 130 mmol/L (135-145)
--- NOTE | 2018-01-01 13:53 | CR ---
CLINICAL HISTORY: 72-year-old female in the emergency department with chest pain. INTERPRETATION: Hiatus hernia incarcerated in the lower middle mediastinum as noted back on er 2017 exam. No acute new cardiopulmonary abnormality, i.e., normal cardiac silhouette without cephalization of fl ow, new signs of alveolar edema or dependent pleural fluid accumulation. No new lung mass, hilar lymphadenopathy or focal lobar pneumonia. No atelectasis/collapse. No pneumothorax or free subdiaphragmatic air. CONCLUSION: No acute new cardiopulmonary abnormality since 01 August 2017 or 06 September 2017 exams.
--- NOTE | 2018-01-02 19:17 | EKG ---
01/01/2018 - DARLINE FERRARA - FINDINGS: EKG per my reading, shows sinus rhythm at the rate of 87. MODL /[id number]
== END 2018-01-01 13:45 | disposition home or self-care (01) ==
LOC: DL.ED 11:38
DX: J45.902 Unspecified asthma with status asthmaticus (principal); I10 Essential (primary) hypertension; Z88.1 Allergy status to other antibiotic agents; Z88.8 Allergy status to other drugs, medicaments and biological substances; Z79.899 Other long term (current) drug therapy
CPT/HCPCS: 36415; 71045; 80053; 83735; 85025; 93005; 93010; 96361; 96374; 99284; 99285; A9270; J2930; J7030; J7050

== ENCOUNTER 2022-02-19 10:57 | Emergency (ER) | payer BC | END 2022-02-19 12:35 | disposition left against medical advice (07) | LOC: DL.ED 10:57 | DX: Z53.21 Procedure and treatment not carried out due to patient leaving prior to being seen by health care provider (principal) ==